=== PATIENT | female | born 1995 | race African-American/Black ===

== ENCOUNTER 2017-08-11 19:08 | Inpatient (IN) | payer MEDICARE, OTHER ==
[~2017-08-11] VITALS: Ht 154.9 cm; Wt 50.8 kg
[2017-08-11 19:10] VITALS: BP 105/69
[2017-08-11] MEDS ORDERED: HYDROmorphone 1mg/ml Carpuject IVP ONE (19:45)
[2017-08-11 20:02] LABS: HEMATOCRIT 29.5 % (37.0-47.0); HEMOGLOBIN 10.3 G/DL (12.0-16.0); MEAN CORPUSCULAR VOLUME 88 FL (80-99); PLATELET COUNT 304 K/UL (150-450); RED BLOOD COUNT 3.37 M/UL (4.20-5.40); RED CELL DISTRIBUTION WIDTH 13.4 % (11.6-14.8)
[2017-08-11 20:15] LABS: APPEARANCE,URINE CLEAR; BILIRUBIN, URINE NEGATIVE (NEGATIVE); COLOR,URINE PALE YELLOW; GLUCOSE, URINE (UA) NEGATIVE (NEGATIVE); KETONES,URINE 2+ (NEGATIVE); LEUKOCYTE ESTERASE ,URINE NEGATIVE (NEGATIVE); NITRITE,URINE NEGATIVE (NEGATIVE); PH,URINE 5 (4.5-8.0); PROTEIN,URINE NEGATIVE (NEGATIVE); UROBILINOGEN,URINE NORMAL MG/DL (0.0-1.0)
[2017-08-11 20:17] LABS: WHITE BLOOD COUNT 24.5 K/UL (4.8-10.8)
[2017-08-11 20:23] LABS: ANION GAP 10 mmol/L (5-15); BLOOD UREA NITROGEN 7 mg/dL (7-18); CALCIUM 9.5 MG/DL (8.5-10.1); CARBON DIOXIDE 24 MMOL/L (21-32); CHLORIDE 106 MMOL/L (98-107); CREATININE 0.7 MG/DL (0.55-1.30); POTASSIUM 3.8 MMOL/L (3.5-5.1); SODIUM 140 MMOL/L (136-145)
[2017-08-11 20:24] LABS: INR 1.1 (0.9-1.1)
[2017-08-11 20:35] LABS: ALANINE AMINOTRANSFERASE 10 U/L (12-78); ALBUMIN 4.9 G/DL (3.4-5.0); ALBUMIN/GLOBULIN RATIO 1.8 (1.0-2.7); ALKALINE PHOSPHATASE 63 U/L (46-116); ASPARTATE AMINO TRANSFERASE 19 U/L (15-37); BILIRUBIN,TOTAL 1.4 MG/DL (0.2-1.0)
[2017-08-11 20:36] LABS: BILIRUBIN,DIRECT 0.3 MG/DL (0.0-0.3)
[2017-08-11] MEDS ORDERED: IBUPROFEN600 MG ORAL (21:37)
--- NOTE | 2017-08-11 21:43 | Emergency Room Report ---
History of Present Illness General Chief Complaint: Pain Source: Patient (SWATI JUAREZ M.D.) Present Illness HPI 22-year-old female presents ED for evaluation. Patient describing generalized body pain x1 day. Has history of sickle cell disease. Status post splenectomy. Pain is throbbing, 9/10, nonradiating. Denies fevers chills. Denies chest pain or shortness of breath. No other aggravating relieving factors. Denies any other associated (SWATI JUAREZ M.D.) Allergies: Coded Allergies: CEFTRIAXONE (Verified Allergy, Unknown, 08/11/17) MORPHINE (Verified Allergy, Unknown, 08/11/17) PENICILLINS (Verified Allergy, Unknown, 08/11/17) SULFA (SULFONAMIDE ANTIBIOTICS) (Verified Allergy, Unknown, 08/11/17) Patient History Past Medical History: asthma Past Surgical History: none Pertinent Family History: none Social History: Denies: smoking, alcohol use, drug use Last Menstrual Period: now Now: No Immunizations: UTD Reviewed Nursing Documentation: PMH: Agreed, PSxH: Agreed (SWATI JUAREZ M.D.) Nursing Documentation-PMH Past Medical History: No History, Except For Hx Cardiac Problems: No - sickle cell disease Hx Asthma: Yes (SWATI JUAREZ M.D.) Review of Systems All Other Systems: negative except mentioned in HPI (SWATI JUAREZ M.D.) Physical Exam Vital Signs Date Time Temp Pulse Resp B/P (MAP) Pulse Ox O2 Delivery O2 Flow Rate FiO2 08/11/17 19:06 99.0 90 16 105/69 99 Room Air Sp02 EP Interpretation: reviewed, normal General Appearance: no apparent distress, alert, GCS 15, non-toxic Head: normocephalic, atraumatic Eyes: bilateral eye normal inspection, bilateral eye PERRL ENT: hearing grossly normal, normal pharynx, no angioedema, normal voice Neck: full range of motion, supple/symm/no masses Respiratory: chest non-tender, lungs clear, normal breath sounds, speaking full sentences Cardiovascular #1: regular rate, rhythm, no edema Cardiovascular #2: 2+ carotid (R), 2+ carotid (L), 2+ radial (R), 2+ radial (L) , 2+ dorsalis pedis (R), 2+ dorsalis pedis (L) Gastrointestinal: normal bowel sounds, non tender, soft, non-distended, no guarding, no rebound Rectal: deferred Genitourinary: normal inspection, no CVA tenderness Musculoskeletal: back normal, gait/station normal, normal range of motion, non- tender Neurologic: alert, oriented x3, responsive, motor strength/tone normal, sensory intact, speech normal Psychiatric: judgement/insight normal, memory normal, mood/affect normal, no suicidal/homicidal ideation Reflexes: 3+ bicep (R), 3+ bicep (L), 3+ tricep (R), 3+ tricep (L), 3+ knee (R) , 3+ knee (L) Skin: normal color, no rash, warm/dry, well hydrated Lymphatic: no adenopathy (SWATI JUAREZ M.D.) Medical Decision Making Diagnostic Impression: Primary Impression: Sickle cell crisis Labs Test 08/11/17 19:47 White Blood Count 24.5 K/UL (4.8-10.8) Red Blood Count 3.37 M/UL (4.20-5.40) Hemoglobin 10.3 G/DL (12.0-16.0) Hematocrit 29.5 % (37.0-47.0) Mean Corpuscular Volume 88 FL (80-99) Mean Corpuscular Hemoglobin 30.6 PG (27.0-31.0) Mean Corpuscular Hemoglobin Concent 35.0 G/DL (32.0-36.0) Red Cell Distribution Width 13.4 % (11.6-14.8) Platelet Count 304 K/UL (150-450) Mean Platelet Volume 6.2 FL (6.5-10.1) Neutrophils (%) (Auto) % (45.0-75.0) Lymphocytes (%) (Auto) % (20.0-45.0) Monocytes (%) (Auto) % (1.0-10.0) Eosinophils (%) (Auto) % (0.0-3.0) Basophils (%) (Auto) % (0.0-2.0) Differential Total Cells Counted 100 Neutrophils % (Manual) 75 % (45-75) Lymphocytes % (Manual) 14 % (20-45) Monocytes % (Manual) 8 % (1-10) Eosinophils % (Manual) 0 % (0-3) Basophils % (Manual) 0 % (0-2) Band Neutrophils 3 % (0-8) Nucleated Red Blood Cells 2 /100 WBC Platelet Estimate Adequate Platelet Morphology Normal Hypochromasia 1+ Anisocytosis 1+ Reticulocyte Count 2.6 % (0.0-2.0) Prothrombin Time 11.8 SEC (9.30-11.50) Prothromb Time International Ratio 1.1 (0.9-1.1) Activated Partial Thromboplast Time 31 SEC (23-33) Urine Color Pale yellow Urine Appearance Clear Urine pH 5 (4.5-8.0) Urine Specific [place] 1.015 (1.005-1.035) Urine Protein Negative (NEGATIVE) Urine Glucose (UA) Negative (NEGATIVE) Urine Ketones 2+ (NEGATIVE) Urine Occult Blood Negative (NEGATIVE) Urine Nitrite Negative (NEGATIVE) Urine Bilirubin Negative (NEGATIVE) Urine Urobilinogen Normal MG/DL (0.0-1.0) Urine Leukocyte Esterase Negative (NEGATIVE) Urine HCG, Qualitative Negative Sodium Level 140 MMOL/L (136-145) Potassium Level 3.8 MMOL/L (3.5-5.1) Chloride Level 106 MMOL/L (98-107) Carbon Dioxide Level 24 MMOL/L (21-32) Anion Gap 10 mmol/L (5-15) Blood Urea Nitrogen 7 mg/dL (7-18) Creatinine 0.7 MG/DL (0.55-1.30) Estimat Glomerular Filtration Rate > 60 mL/min (>60) Glucose Level 79 MG/DL (74-106) Calcium Level 9.5 MG/DL (8.5-10.1) Total Bilirubin 1.4 MG/DL (0.2-1.0) Direct Bilirubin 0.3 MG/DL (0.0-0.3) Aspartate Amino Transf (AST/SGOT) 19 U/L (15-37) Alanine Aminotransferase (ALT/SGPT) 10 U/L (12-78) Alkaline Phosphatase 63 U/L (46-116) Lactate Dehydrogenase 258 U/L (81-234) Total Protein 7.6 G/DL (6.4-8.2) Albumin 4.9 G/DL (3.4-5.0) Globulin 2.7 g/dL Albumin/Globulin Ratio 1.8 (1.0-2.7) (SWATI JUAREZ M.D.) ER Course Endorsed to Dr Mixon for admission at 11pm Requested tele - patient upgraded ECG was done, NSR, no arrythmia Patient stable in ED (CEASAR KINCAID M.D.) EKG Diagnostic Results Rate: normal Rhythm: NSR ST Segments: no acute changes ASA given to the pt in ED: No (CEASAR KINCAID M.D.) Rhythm Strip Diag. Results EP Interpretation: yes Rate: 92 Rhythm: NSR, no PVC's, no ectopy (CEASAR KINCAID M.D.) Last Vital Signs Date Time Temp Pulse Resp B/P (MAP) Pulse Ox O2 Delivery O2 Flow Rate FiO2 08/11/17 20:26 99.0 08/11/17 19:10 90 16 105/69 99 Room Air Status: improved (SWATI JUAREZ M.D.) Status: improved (CEASAR KINCAID M.D.) Disposition: ADMITTED INPATIENT Condition: Serious Referrals: NOT CHOSEN AMALIA/,REFERRING (PCP) SWATI JUAREZ M.D. Aug 11, 2017 21:43 CEASAR KINCAID M.D. Aug 11, 2017 23:51
[2017-08-11 21:46] VITALS: BP 112/57
[2017-08-11] MEDS ORDERED: Ketorolac 30mg Inj IV ONE (22:15)
[2017-08-11 23:04] VITALS: BP 108/90
[2017-08-12 01:00] VITALS: BP 123/75
[2017-08-12] MEDS ORDERED: HYDROmorphone 1mg/ml Carpuject IVP PRN (03:15)
[2017-08-12] MEDS ORDERED: HYDROmorphone 1mg/ml Carpuject IVP ONE (03:30)
[2017-08-12 08:00] VITALS: BP 100/59
[2017-08-12 09:24] LABS: BASOPHILS % (AUTO) 1.5 % (0.0-2.0); EOSINOPHILS % (AUTO) 2.3 % (0.0-3.0); HEMATOCRIT 26.7 % (37.0-47.0); HEMOGLOBIN 9.3 G/DL (12.0-16.0); LYMPHOCYTES % (AUTO) 27.1 % (20.0-45.0); MEAN CORPUSCULAR VOLUME 87 FL (80-99); MONOCYTES % (AUTO) 11.3 % (1.0-10.0); NEUTROPHILS % (AUTO) 57.9 % (45.0-75.0); PLATELET COUNT 285 K/UL (150-450); RED BLOOD COUNT 3.05 M/UL (4.20-5.40); RED CELL DISTRIBUTION WIDTH 13.5 % (11.6-14.8); WHITE BLOOD COUNT 13.4 K/UL (4.8-10.8)
[2017-08-12] MEDS: HYDROmorphone 1mg/ml Carpuject IVP PRN ×4 (09:24→22:50)
[2017-08-12 10:09] LABS: ALANINE AMINOTRANSFERASE 6 U/L (12-78); ALBUMIN 4.1 G/DL (3.4-5.0); ALBUMIN/GLOBULIN RATIO 1.6 (1.0-2.7); ALKALINE PHOSPHATASE 53 U/L (46-116); ANION GAP 8 mmol/L (5-15); ASPARTATE AMINO TRANSFERASE 18 U/L (15-37); BILIRUBIN,TOTAL 1.2 MG/DL (0.2-1.0); BLOOD UREA NITROGEN 7 mg/dL (7-18); CALCIUM 9.1 MG/DL (8.5-10.1); CARBON DIOXIDE 24 MMOL/L (21-32); CHLORIDE 109 MMOL/L (98-107); CREATININE 0.6 MG/DL (0.55-1.30); POTASSIUM 3.5 MMOL/L (3.5-5.1); SODIUM 141 MMOL/L (136-145)
[2017-08-12 10:12] LABS: BILIRUBIN,DIRECT 0.2 MG/DL (0.0-0.3)
[2017-08-12] MEDS: DiphenhydrAMINE 50mg/ml Inj IVP PRN ×2 (15:34→21:13)
[2017-08-12 16:00] VITALS: BP 98/63
--- NOTE | 2017-08-12 16:18 | History and Physical Report ---
DATE OF ADMISSION: 08/11/2017 CHIEF COMPLAINT: Sickle cell pain exacerbation. HISTORY OF PRESENT ILLNESS: The patient is a 22-year-old female. She has a history of sickle cell anemia, presented with complaints of typical sickle cell pain. The pain had been persistent now for the last week or two. She had some mild vomiting, which according to her is unusual for her pain exacerbation. According to the patient, she usually has attacks with her periods, although she does not normally require admission. Her last admission requiring transfusion was in October of last year. She denies any fevers or chills. She has had no chest pain or shortness of breath. She had one episode of vomiting. She denies any ill contacts. She has had no diarrhea. In the ER, her pain could not be controlled. She was therefore admitted. PAST MEDICAL HISTORY: As above. History of asthma. PAST SURGICAL HISTORY: Includes splenectomy and oophorectomy. CURRENT MEDICATIONS: Reconciled and reviewed. ALLERGIES: Include Rocephin, morphine, penicillin, and sulfa. FAMILY HISTORY: Significant for sickle cell. SOCIAL HISTORY: Negative for tobacco, ethanol, or drugs. REVIEW OF SYSTEMS: GENERAL: No fever or chills. HEENT: No headaches or visual changes. CARDIOPULMONARY: No chest pain or shortness of breath. GASTROINTESTINAL: One episode of nausea and vomiting. GENITOURINARY: No urgency or frequency. MUSCULOSKELETAL: No joint pain or swelling. NEUROLOGIC: No evidence of seizures. PHYSICAL EXAMINATION: VITAL SIGNS: Temperature 97.5, pulse 56, respirations 18, and blood pressure 100/59. GENERAL: The patient is well developed, no apparent distress. HEART: Regular rate and rhythm. LUNGS: Clear. ABDOMEN: Soft, nontender, and nondistended. EXTREMITIES: Without clubbing, cyanosis, or edema. LABORATORY AND DIAGNOSTIC DATA: White count was 24,000, hemoglobin 10, hematocrit 29, and platelet count was 304,000. Retic was 2.6. Sodium was 140, potassium 3.8. Total bilirubin 1.4. Coags are normal. UA was clear. X-ray results are currently pending. EKG showed sinus rhythm. ASSESSMENT: This is a pleasant female with complaints of sickle cell pain exacerbation. 1. Sickle cell pain exacerbation. 2. Asthma. 3. Leukocytosis, suspect stress reaction. PLAN: IV fluids, IV pain medications, antiemetics. Eloy Bey M.D. DR: MARIAM JOB#: [id number] CC:
[2017-08-12 20:00] VITALS: BP 113/64
[2017-08-13] VITALS: BP 113/66
[2017-08-13 04:00] VITALS: BP 103/64
[2017-08-13] MEDS: HYDROmorphone 1mg/ml Carpuject IVP PRN ×5 (05:10→23:07)
[2017-08-13 08:00] VITALS: BP 100/53
[2017-08-13] MEDS: DiphenhydrAMINE 50mg/ml Inj IVP PRN ×2 (10:44→20:20)
[2017-08-13 12:00] VITALS: BP 141/81
--- NOTE | 2017-08-13 12:36 | General Progress Note ---
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, unspecified SNOMED: 352496268 Status: stable, progressing Assessment/Plan cont ivf cont pain rx monitor cbc Subjective ROS Limited/Unobtainable: No Constitutional: Reports: malaise, weakness HEENT: Reports: no symptoms Cardiovascular: Reports: no symptoms Respiratory: Reports: no symptoms Gastrointestinal/Abdominal: Reports: abdominal pain Genitourinary: Reports: no symptoms Neurologic/Psychiatric: Reports: no symptoms Endocrine: Reports: no symptoms Hematologic/Lymphatic: Reports: anemia Allergies: Coded Allergies: CEFTRIAXONE (Verified Allergy, Unknown, 08/11/17) MORPHINE (Verified Allergy, Unknown, 08/11/17) PENICILLINS (Verified Allergy, Unknown, 08/11/17) SULFA (SULFONAMIDE ANTIBIOTICS) (Verified Allergy, Unknown, 08/11/17) All Systems: reviewed and negative except above Subjective less abd pain and more back pain. pain controlled on current rx, remains on ivf. Objective Last 24 Hour Vital Signs Date Time Temp Pulse Resp B/P (MAP) Pulse Ox O2 Delivery O2 Flow Rate FiO2 08/13/17 08:00 97.8 72 20 100/53 97 Room Air 08/13/17 04:13 71 08/13/17 04:00 98.0 78 20 103/64 100 Room Air 08/13/17 00:00 98.0 67 18 113/66 100 Room Air 08/12/17 23:50 87 08/12/17 20:03 66 08/12/17 20:00 97.9 58 18 113/64 100 Room Air 08/12/17 16:00 98.3 65 18 98/63 96 Room Air Intake and Output 08/12/17 08/13/17 19:00 07:00 Intake Total 240 ml 2058 ml Balance 240 ml 2058 ml Intake Oral 240 ml IV Total 2058 ml # Voids 3 1 Height (Feet): 5 Height (Inches): 1.00 Weight (Pounds): 112 General Appearance: WD/WN, alert Neck: supple Cardiovascular: normal rate, regular rhythm Respiratory/Chest: chest wall non-tender, lungs clear, normal breath sounds Abdomen: normal bowel sounds, non tender, soft, no organomegaly, no mass Edema: no edema noted Arm (L), no edema noted Arm (R), no edema noted Leg (L), no edema noted Leg (R), no edema noted Pedal (L), no edema noted Pedal (R), no edema noted Generalized SALEEM KRUEGER Aug 13, 2017 12:36
[2017-08-13 16:00] VITALS: BP 126/73
[2017-08-14 00:55] VITALS: BP 99/64
[2017-08-14] MEDS: DiphenhydrAMINE 50mg/ml Inj IVP PRN ×2 (02:41→22:02)
[2017-08-14 04:00] VITALS: BP 100/59
[2017-08-14] MEDS: HYDROmorphone 1mg/ml Carpuject IVP PRN ×3 (07:02→21:01)
[2017-08-14 07:44] LABS: BASOPHILS % (AUTO) 1.3 % (0.0-2.0); EOSINOPHILS % (AUTO) 1.9 % (0.0-3.0); HEMOGLOBIN 9.5 G/DL (12.0-16.0); LYMPHOCYTES % (AUTO) 20.5 % (20.0-45.0); MEAN CORPUSCULAR VOLUME 87 FL (80-99); MONOCYTES % (AUTO) 9.5 % (1.0-10.0); NEUTROPHILS % (AUTO) 66.8 % (45.0-75.0); PLATELET COUNT 290 K/UL (150-450); RED BLOOD COUNT 3.09 M/UL (4.20-5.40); RED CELL DISTRIBUTION WIDTH 13.7 % (11.6-14.8); WHITE BLOOD COUNT 13.2 K/UL (4.8-10.8)
[2017-08-14 08:00] VITALS: BP 105/64
[2017-08-14 08:20] LABS: ALANINE AMINOTRANSFERASE 8 U/L (12-78); ALBUMIN 4.1 G/DL (3.4-5.0); ALBUMIN/GLOBULIN RATIO 1.5 (1.0-2.7); ALKALINE PHOSPHATASE 58 U/L (46-116); ANION GAP 13 mmol/L (5-15); ASPARTATE AMINO TRANSFERASE 16 U/L (15-37); BLOOD UREA NITROGEN 3 mg/dL (7-18); CALCIUM 9.1 MG/DL (8.5-10.1); CARBON DIOXIDE 23 MMOL/L (21-32); CHLORIDE 107 MMOL/L (98-107); CREATININE 0.5 MG/DL (0.55-1.30); POTASSIUM 3.6 MMOL/L (3.5-5.1); SODIUM 142 MMOL/L (136-145)
[2017-08-14 08:49] LABS: BILIRUBIN,DIRECT 1.4 MG/DL (0.0-0.3); BILIRUBIN,TOTAL 1.4 MG/DL (0.2-1.0)
--- NOTE | 2017-08-14 12:21 | General Progress Note ---
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, unspecified SNOMED: 440060111 Status: stable, progressing Assessment/Plan cont ivf cont pain rx- wean iv and start orals monitor cbc Subjective ROS Limited/Unobtainable: No Constitutional: Reports: malaise, weakness HEENT: Reports: no symptoms Cardiovascular: Reports: no symptoms Respiratory: Reports: no symptoms Gastrointestinal/Abdominal: Reports: abdominal pain Genitourinary: Reports: no symptoms Neurologic/Psychiatric: Reports: no symptoms Endocrine: Reports: no symptoms Hematologic/Lymphatic: Reports: anemia Allergies: Coded Allergies: CEFTRIAXONE (Verified Allergy, Unknown, 08/11/17) MORPHINE (Verified Allergy, Unknown, 08/11/17) PENICILLINS (Verified Allergy, Unknown, 08/11/17) SULFA (SULFONAMIDE ANTIBIOTICS) (Verified Allergy, Unknown, 08/11/17) All Systems: reviewed and negative except above Subjective less abd pain and more back pain. pain controlled on current rx, remains on ivf. does feel ready to go Objective Last 24 Hour Vital Signs Date Time Temp Pulse Resp B/P (MAP) Pulse Ox O2 Delivery O2 Flow Rate FiO2 08/14/17 08:00 98.1 72 17 105/64 94 Nasal Cannula 08/14/17 04:00 97.9 59 18 100/59 98 08/14/17 00:56 Room Air 08/14/17 00:55 98.0 68 19 99/64 98 08/13/17 16:00 97.6 90 21 126/73 98 Room Air Intake and Output 08/13/17 08/14/17 19:00 07:00 Intake Total 300 ml 1110 ml Balance 300 ml 1110 ml Intake Oral 300 ml 360 ml IV Total 750 ml Laboratory Tests 08/14/17 06:30: White Blood Count 13.2H, Red Blood Count 3.09L, Hemoglobin 9.5L, Hematocrit 27.0L, Mean Corpuscular Volume 87, Mean Corpuscular Hemoglobin 30.6, Mean Corpuscular Hemoglobin Concent 35.0, Red Cell Distribution Width 13.7, Platelet Count 290, Mean Platelet Volume 6.6, Neutrophils (%) (Auto) 66.8, Lymphocytes (% ) (Auto) 20.5, Monocytes (%) (Auto) 9.5, Eosinophils (%) (Auto) 1.9, Basophils ( %) (Auto) 1.3, Sodium Level 142, Potassium Level 3.6, Chloride Level 107, Carbon Dioxide Level 23, Anion Gap 13, Blood Urea Nitrogen 3L, Creatinine 0.5L, Estimat Glomerular Filtration Rate > 60, Glucose Level 77, Calcium Level 9.1, Total Bilirubin 1.4H, Direct Bilirubin 1.4H, Aspartate Amino Transf (AST/SGOT) 16, Alanine Aminotransferase (ALT/SGPT) 8L, Alkaline Phosphatase 58, Total Protein 6.9, Albumin 4.1, Globulin 2.8, Albumin/Globulin Ratio 1.5 Height (Feet): 5 Height (Inches): 1.00 Weight (Pounds): 112 General Appearance: WD/WN, alert Neck: supple Cardiovascular: regular rhythm Respiratory/Chest: lungs clear Abdomen: normal bowel sounds, non tender, soft Edema: no edema noted Arm (L), no edema noted Arm (R), no edema noted Leg (L), no edema noted Leg (R), no edema noted Pedal (L), no edema noted Pedal (R), no edema noted Generalized SALEEM KRUEGER Aug 14, 2017 12:21
[2017-08-14] MEDS ORDERED: HYDROmorphone 1mg/ml Carpuject IVP PRN (12:30)
[2017-08-14 16:35] VITALS: BP 131/82
[2017-08-14] MEDS: HYDROcodone/Acetamin 10/325 tab ORAL PRN (17:23)
[2017-08-14 20:00] VITALS: BP 116/73
[2017-08-15 00:52] VITALS: BP 120/75
[2017-08-15 04:00] VITALS: BP 97/61
[2017-08-15 08:19] VITALS: BP 103/60
[2017-08-15] MEDS ORDERED: NORCO 10-325 T1 EACH ORAL (08:28)
[2017-08-15] MEDS: HYDROcodone/Acetamin 10/325 tab ORAL PRN (08:44)
[2017-08-15] MEDS: HYDROmorphone 1mg/ml Carpuject IVP PRN (10:16)
[2017-08-15 12:00] VITALS: BP 121/77
[2017-08-15] MEDS: DiphenhydrAMINE 50mg/ml Inj IVP PRN (12:02)
[2017-08-15 16:00] VITALS: BP 105/61
--- NOTE | 2017-08-16 14:16 | Discharge Summary ---
Discharge Summary Hospital Course Date of Admission Aug 11, 2017 at 22:18 Date of Discharge Aug 15, 2017 at 17:36 Admitting Diagnosis sickle cell crysis HPI Caterina Austin is a 22 year old female who was admitted on Aug 11, 2017 at 22:18 for PAIN Hospital Course [id number] Discharge Discharge Disposition Patient was discharged to Home (01) Discharge Diagnoses: Angelique Woodruff NP Aug 16, 2017 14:16
--- NOTE | 2017-08-17 12:55 | Discharge Summary ---
DATE OF ADMISSION: 08/11/2017 DATE OF DISCHARGE: 08/15/2017 ADMISSION DIAGNOSIS: Sickle cell pain crisis. DISCHARGE DIAGNOSIS: Sickle cell pain crisis. HOSPITAL COURSE: The patient is a pleasant female who was admitted with sickle cell pain crisis. She received IV pain medications and hydration. Reticulocyte count was appropriately elevated. On discharge, the patient was doing well. She will be discharged home on oral pain regimen. She is instructed to follow up with her PMD in one week for followup. She has been instructed to return for any fevers chills, chest pain, or shortness of breath. Eloy Bey M.D. DR: David JOB#: [id number] CC:
--- NOTE | 2017-08-17 19:45 | Discharge Summary 2 SIG ---
DATE OF ADMISSION: 08/11/2017 DATE OF DISCHARGE: 08/15/2017 BRIEF HOSPITAL COURSE: The patient is a 22-year-old female with history of sickle cell anemia presented with complaints of a typical sickle cell pain. Pain had been persistent for the last week or 2 and had some mild vomiting. She usually gets attacks with her periods although she does not normally require admission. Her last admission required blood transfusion was in October of last year. She had no chest pain. No shortness of breath and had one episode of vomiting. She denied any ill contacts. No diarrhea. In the ER, her pain could not be controlled. Evaluation showed WBC of 24.5, hemoglobin was 10.3, hematocrit was 29. Reticulocyte count was 2.6. She was admitted for sickle cell crisis and was given IV hydration, pain medications, and antiemetics. Hemoglobin had been stable. Leukocytosis downtrended. She was eventually started on orals. She had good pain control and was tolerating diet. She was eventually discharged home. FINAL DIAGNOSIS: Sickle cell crisis. DISCHARGE MEDICATIONS: [place] 10/325 mg p.r.n. DISCHARGE INSTRUCTIONS: Followup with PMD in a week. Eloy Bey M.D. I have been assigned to dictate discharge summary on this account and I was not involved in the patient's management. Angelique Woodruff N.P. DR: URIAH JOB#: [id number] CC: [place]
== END 2017-08-15 17:36 | disposition home or self-care (01) | DRG 812 ==
LOC: EDBD 19:08 → EMR 19:52 → UNDOADMIN 22:18 → 3E 22:18 → 2E 22:18 → EDBEDREQ 22:34 → 3E 08-13 17:00
DX: D57.00 Hb-SS disease with crisis, unspecified (principal); D72.829 Elevated white blood cell count, unspecified; J45.909 Unspecified asthma, uncomplicated; Z88.0 Allergy status to penicillin; Z88.2 Allergy status to sulfonamides
CPT/HCPCS: 36415; 80053; 81003; 81025; 82248; 83615; 84443; 85007; 85025; 85044; 85610; 85730; 86710; 86850; 86870; 86900; 86901; 86904; 99285; J2405

== ENCOUNTER 2017-09-02 10:09 | Emergency (ER) | payer MEDICARE, OTHER ==
[~2017-09-02] VITALS: Ht 154.9 cm; Wt 50.8 kg
[2017-09-02 10:09] VITALS: BP 118/63
[~2017-09-02 10:09] MED LIST: IBUPROFEN600 MG ORAL; NORCO 10-325 T1 EACH ORAL
--- NOTE | 2017-09-02 10:16 | Emergency Room Report ---
History of Present Illness General Chief Complaint: Abdominal Pain Source: Patient Present Illness HPI Patient is a 22-year-old female who presented after increased lower bowel pain and vaginal bleeding. Patient prior history of sickle cell disease and prior splenectomy. Patient states that she had having increased lower bowel pain cramping. She reported having previous menses which appear to be normal however she was having increased vaginal bleeding today. Patient not currently taking any control pills. She's not sure if she is .The patient reports having sickle cell SC disease as well as a baseline hemoglobin approximately 11. 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 Allergies: Coded Allergies: CEFTRIAXONE (Verified Allergy, Unknown, 08/11/17) MORPHINE (Verified Allergy, Unknown, 08/11/17) PENICILLINS (Verified Allergy, Unknown, 08/11/17) SULFA (SULFONAMIDE ANTIBIOTICS) (Verified Allergy, Unknown, 08/11/17) Patient History Past Medical History: see triage record Last Menstrual Period: 08/30/17 Now: No : 0 Reviewed Nursing Documentation: PMH: Agreed, PSxH: Agreed Nursing Documentation-PMH Past Medical History: No Stated History Hx Cardiac Problems: No Hx Asthma: Yes Hx Cancer: No Hx Gastrointestinal Problems: No Hx Neurological Problems: No Review of Systems All Other Systems: negative except mentioned in HPI Physical Exam Vital Signs Date Time Temp Pulse Resp B/P (MAP) Pulse Ox O2 Delivery O2 Flow Rate FiO2 09/02/17 10:05 99.0 64 18 118/63 99 Room Air 99.0 Sp02 EP Interpretation: reviewed, normal General Appearance: normal inspection, well appearing, no apparent distress, alert, GCS 15, non-toxic Head: atraumatic ENT: normal ENT inspection, hearing grossly normal, normal voice Neck: normal inspection, full range of motion, supple, no bony tend Respiratory: normal inspection, lungs clear, normal breath sounds, no respiratory distress, no retraction, no wheezing Cardiovascular #1: regular rate, rhythm, no edema Gastrointestinal: normal inspection, normal bowel sounds, non tender, soft, no guarding, no hernia, tenderness - suprapubic tendernesss Genitourinary: no CVA tenderness Musculoskeletal: normal inspection, back normal, normal range of motion Neurologic: normal inspection, alert, responsive, speech normal Psychiatric: normal inspection, judgement/insight normal, mood/affect normal Skin: normal inspection, normal color, no rash Medical Decision Making Diagnostic Impression: Primary Impression: Abdominal pain Additional Impressions: Sickle cell anemia Ovarian cyst ER Course Patient presented for abdominal pain. Differential diagnoses included ischemic bowel, appendicitis, perforated viscus, abdominal aortic aneurysm, inferior myocardial infarction, viral gastroenteritis Because of complexity of patient's case laboratory testing and imaging studies were ordered.Laboratory testing showed evidence of adequate hemoglobin as well as adequate reticulocyte count consistent patient's recent hospitalization values. The patient started on IV Levaquin. Pelvic ultrasound was obtained and showed adequate ovarian flow as well as small amount of fluid in the cul-de sac. The patient was given IV Dilaudid for pain with improvement.. The patient is advised that she would need to followup with her primary care physician for reevaluation of her blood counts. Patient given a prescription for ciprofloxacin. Patient was given ibuprofen after requesting a prescription for pain medications. The patient does not appear to be septic. Labs Test 09/02/17 10:15 09/02/17 10:50 White Blood Count 21.4 K/UL (4.8-10.8) Red Blood Count 3.48 M/UL (4.20-5.40) Hemoglobin 11.0 G/DL (12.0-16.0) Hematocrit 30.7 % (37.0-47.0) Mean Corpuscular Volume 88 FL (80-99) Mean Corpuscular Hemoglobin 31.6 PG (27.0-31.0) Mean Corpuscular Hemoglobin Concent 35.9 G/DL (32.0-36.0) Red Cell Distribution Width 13.1 % (11.6-14.8) Platelet Count 322 K/UL (150-450) Mean Platelet Volume 7.0 FL (6.5-10.1) Neutrophils (%) (Auto) % (45.0-75.0) Lymphocytes (%) (Auto) % (20.0-45.0) Monocytes (%) (Auto) % (1.0-10.0) Eosinophils (%) (Auto) % (0.0-3.0) Basophils (%) (Auto) % (0.0-2.0) Differential Total Cells Counted 100 Neutrophils % (Manual) 67 % (45-75) Lymphocytes % (Manual) 25 % (20-45) Monocytes % (Manual) 5 % (1-10) Eosinophils % (Manual) 3 % (0-3) Basophils % (Manual) 0 % (0-2) Band Neutrophils 0 % (0-8) Nucleated Red Blood Cells 2 /100 WBC Platelet Estimate Adequate Platelet Morphology Normal Hypochromasia 1+ Reticulocyte Count 2.9 % (0.0-2.0) Sodium Level 140 MMOL/L (136-145) Potassium Level 3.7 MMOL/L (3.5-5.1) Chloride Level 108 MMOL/L (98-107) Carbon Dioxide Level 28 MMOL/L (21-32) Anion Gap 4 mmol/L (5-15) Blood Urea Nitrogen 4 mg/dL (7-18) Creatinine 0.6 MG/DL (0.55-1.30) Estimat Glomerular Filtration Rate > 60 mL/min (>60) Glucose Level 84 MG/DL (74-106) Calcium Level 9.1 MG/DL (8.5-10.1) Total Bilirubin 0.9 MG/DL (0.2-1.0) Aspartate Amino Transf (AST/SGOT) 19 U/L (15-37) Alanine Aminotransferase (ALT/SGPT) 13 U/L (12-78) Alkaline Phosphatase 68 U/L (46-116) Total Protein 7.2 G/DL (6.4-8.2) Albumin 4.1 G/DL (3.4-5.0) Globulin 3.1 g/dL Albumin/Globulin Ratio 1.3 (1.0-2.7) Lipase 185 U/L (73-393) Human Chorionic Gonadotropin, Quant < 1 mIU/mL (1-6) Urine Color Red Urine Appearance Cloudy Urine pH 5 (4.5-8.0) Urine Specific [place] 1.015 (1.005-1.035) Urine Protein 3+ (NEGATIVE) Urine Glucose (UA) Negative (NEGATIVE) Urine Ketones Negative (NEGATIVE) Urine Occult Blood 5+ (NEGATIVE) Urine Nitrite Negative (NEGATIVE) Urine Bilirubin Negative (NEGATIVE) Urine Urobilinogen Normal MG/DL (0.0-1.0) Urine Leukocyte Esterase 2+ (NEGATIVE) Urine RBC Tntc /HPF (0 - 2) Urine WBC 5-10 /HPF (0 - 2) Urine Squamous Epithelial Cells Few /LPF (NONE/OCC) Urine Bacteria Few /HPF (NONE) Last Vital Signs Date Time Temp Pulse Resp B/P (MAP) Pulse Ox O2 Delivery O2 Flow Rate FiO2 09/02/17 10:05 99.0 64 18 118/63 99 Room Air 99.0 Status: improved Disposition: HOME, SELF-CARE Condition: Stable Scripts Ibuprofen* (MOTRIN*) 600 Mg Tablet 600 MG ORAL Q6H Y for For Pain, #30 TAB Prov: Idris Larson 09/02/17 Ciprofloxacin Hcl* (CIPROFLOXACIN HCL*) 500 Mg Tablet 500 MG ORAL EVERY 12 HOURS, #14 TAB 0 Refills Prov: Idris Larson 09/02/17 Idris Larson Sep 02, 2017 10:16
[2017-09-02 10:52] LABS: HEMATOCRIT 30.7 % (37.0-47.0); MEAN CORPUSCULAR VOLUME 88 FL (80-99); PLATELET COUNT 322 K/UL (150-450); RED BLOOD COUNT 3.48 M/UL (4.20-5.40); RED CELL DISTRIBUTION WIDTH 13.1 % (11.6-14.8); WHITE BLOOD COUNT 21.4 K/UL (4.8-10.8)
[2017-09-02 10:55] LABS: ANION GAP 4 mmol/L (5-15); BLOOD UREA NITROGEN 4 mg/dL (7-18); CALCIUM 9.1 MG/DL (8.5-10.1); CARBON DIOXIDE 28 MMOL/L (21-32); CHLORIDE 108 MMOL/L (98-107); CREATININE 0.6 MG/DL (0.55-1.30); POTASSIUM 3.7 MMOL/L (3.5-5.1); SODIUM 140 MMOL/L (136-145)
[2017-09-02 10:59] LABS: ALANINE AMINOTRANSFERASE 13 U/L (12-78); ALBUMIN 4.1 G/DL (3.4-5.0); ALBUMIN/GLOBULIN RATIO 1.3 (1.0-2.7); ALKALINE PHOSPHATASE 68 U/L (46-116); ASPARTATE AMINO TRANSFERASE 19 U/L (15-37); BILIRUBIN,TOTAL 0.9 MG/DL (0.2-1.0)
[2017-09-02] MEDS ORDERED: HYDROmorphone 1mg/ml Carpuject IVP ONE (11:15)
[2017-09-02 11:22] LABS: APPEARANCE,URINE CLOUDY; BILIRUBIN, URINE NEGATIVE (NEGATIVE); GLUCOSE, URINE (UA) NEGATIVE (NEGATIVE); KETONES,URINE NEGATIVE (NEGATIVE); LEUKOCYTE ESTERASE ,URINE 2+ (NEGATIVE); NITRITE,URINE NEGATIVE (NEGATIVE); PH,URINE 5 (4.5-8.0); PROTEIN,URINE 3+ (NEGATIVE); UROBILINOGEN,URINE NORMAL MG/DL (0.0-1.0)
[2017-09-02 11:24] LABS: COLOR,URINE RED
[2017-09-02 12:21] VITALS: BP 109/61
[2017-09-02] MEDS ORDERED: CIPROFLOXACIN500 M2 ORAL (13:48)
[2017-09-02] MEDS ORDERED: IBUPROFEN600 MG ORAL (13:57)
[2017-09-02 14:09] VITALS: BP 116/79
--- NOTE | 2017-09-03 14:12 | Diagnostic Imaging Report ---
Indication: Pelvic pain, negative serum test Technique: Transabdominal and transvaginal images Comparison: none Findings: Uterus measures 8.3 cm length by 3.8 cm AP. Endometrium measures 10 mm thick. No myometrial abnormality. The left ovary is surgically absent. The right ovary measures 4 cm in length. No adnexal mass demonstrated. Possible small collapsed hemorrhagic follicle is seen in the right ovary. There is trace free cul-de-sac fluid. Impression: Surgically absent left ovary Trace free cul-de-sac fluid, presumably physiologic Negative for adnexal mass
== END 2017-09-02 14:09 | disposition home or self-care (01) ==
LOC: EDBD 10:09 → EMR 11:00
DX: N83.201 Unspecified ovarian cyst, right side (principal); R10.9 Unspecified abdominal pain; D57.1 Sickle-cell disease without crisis; Z88.0 Allergy status to penicillin; Z88.2 Allergy status to sulfonamides; Z88.6 Allergy status to analgesic agent; Z88.8 Allergy status to other drugs, medicaments and biological substances; J45.909 Unspecified asthma, uncomplicated; Z90.721 Acquired absence of ovaries, unilateral
CPT/HCPCS: 36415; 76856; 80053; 81003; 83690; 84702; 85007; 85025; 85044; 86850; 86870; 86900; 86901; 86904; 96361; 96365; 96375; 99284; J1170; J1956; J2405

== ENCOUNTER 2017-11-11 14:49 | Emergency (ER) | payer MEDICARE, OTHER ==
[~2017-11-11] VITALS: Ht 170.2 cm; Wt 63.5 kg
[~2017-11-11 14:49] MED LIST changes: +CIPROFLOXACIN500 M2 ORAL
[2017-11-11 14:53] VITALS: BP 133/75
[2017-11-11] MEDS ORDERED: HYDROmorphone 1mg/ml Carpuject IVP ONE (15:15)
--- NOTE | 2017-11-11 15:22 | Emergency Room Report ---
History of Present Illness General Chief Complaint: Pain Source: Patient, EMS Present Illness HPI The patient presents with sickle crisis. 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 Today she was walking and started to have pain throughout her body. In addition to that she's been vomiting and feels nauseated. There is no abdominal pain. She denies any fever or cough. There is no chest pain at this time. The pain is more in her back and extremities and his her usual sickle pain. She has [place] at home but was unable to keep any of her medications down. The paramedics found her in the bathroom. They transported her here. She rates the pain 10/10 and constant aching in extremities and back nonradiating. Last menses was in the beginning the month and she does not believe she is . The patient's last crisis was 2 months ago. She is allergic to morphine and that it causes itching. (When last here, apparently there was a problem when the patient was discharged regarding how she might get home. This apparently escalated where family members came in and were threatening staff, then finally taking the patient home.) Allergies: Coded Allergies: CEFTRIAXONE (Verified Allergy, Unknown, 08/11/17) MORPHINE (Verified Allergy, Unknown, 08/11/17) PENICILLINS (Verified Allergy, Unknown, 08/11/17) SULFA (SULFONAMIDE ANTIBIOTICS) (Verified Allergy, Unknown, 08/11/17) Uncoded Allergies: PENICILLIN (Allergy, Unknown, 11/11/17) SULFA (Allergy, Unknown, 11/11/17) Patient History Past Medical History: see triage record Past Surgical History: other - Splenectomy Social History: Denies: smoking, alcohol use Social History Narrative at home Reviewed Nursing Documentation: PMH: Agreed; PSxH: Agreed Nursing Documentation-PMH Past Medical History: No History, Except For Hx Cardiac Problems: Yes - sickel cell Hx Asthma: Yes Hx Cancer: No Hx Gastrointestinal Problems: No Hx Neurological Problems: No Review of Systems All Other Systems: negative except mentioned in HPI Physical Exam Vital Signs Date Time Temp Pulse Resp B/P (MAP) Pulse Ox O2 Delivery O2 Flow Rate FiO2 11/11/17 14:43 98.8 101 18 133/75 100 Room Air 98.8 Sp02 EP Interpretation: reviewed, normal General Appearance: GCS 15, moderate distress, thin Head: normocephalic Eyes: bilateral eye PERRL, bilateral eye conjunctivae pale, bilateral eye scleral icterus ENT: moist mucus membranes Neck: supple Respiratory: lungs clear, normal breath sounds, other - Hyperventilating Cardiovascular #1: regular rate, rhythm Cardiovascular #2: 2+ radial (R) Gastrointestinal: normal inspection, non tender, no mass, non-distended, decreased bowel sounds Genitourinary: no CVA tenderness Musculoskeletal: normal range of motion, tender - lumbar area, not bony, fairly diffuse Neurologic: alert, oriented x3, grossly normal - With generalized weakness Psychiatric: anxious Skin: warm/dry, pallor Medical Decision Making Diagnostic Impression: Primary Impression: Sickle cell crisis Additional Impressions: UTI (urinary tract infection) Qualified Codes: N30.00 - Acute cystitis without hematuria Vomiting Qualified Codes: R11.2 - Nausea with vomiting, unspecified ER Course Patient presents with c/o sickle crisis. Differential includes sickle cell crisis, occult infection, bone marrow failure, gastroenteritis, urinary tract infection amongst others. The patient will be evaluated with labs chest x-ray. She'll be treated with moderate IV hydration and analgesia. For the nausea and vomiting she'll be given Pepcid and Zofran. EKG without injury. CXR no infiltrates. WBC elevated. H/H low normal. Retic up. CMP with elevated bili, LDH. Elevated lactic acid. Repeat lactate normal. Patient treated with IV Levaquin as elevated WBC, lactate and pyuria. No CVA tenderness, though lower back pain. In the past WBCs have been elevated. Patient improved and requests to go home. Requests tylenol. Multiple discussions regarding d/c medications and her ability to follow up with her doctors at the [facility] that only sees patients Tuesdays and . When I mentioned her going to their Urgent Care Clinic she stated it was too far from where she lives and that we are closer. Patient demanding taxi home. Per decision of gas charger, ambulance summoned to take home. Patient requesting more pain medicine - Percocet given. Patient stable for outpatient observation and treatment. Laboratory Tests Test 11/11/17 15:10 11/11/17 16:20 White Blood Count 23.1 K/UL (4.8-10.8) *H Red Blood Count 4.11 M/UL (4.20-5.40) L Hemoglobin 13.1 G/DL (12.0-16.0) Hematocrit 35.8 % (37.0-47.0) L Mean Corpuscular Volume 87 FL (80-99) Mean Corpuscular Hemoglobin 31.8 PG (27.0-31.0) H Mean Corpuscular Hemoglobin Concent 36.5 G/DL (32.0-36.0) H Red Cell Distribution Width 12.8 % (11.6-14.8) Platelet Count 238 K/UL (150-450) Mean Platelet Volume 7.2 FL (6.5-10.1) Neutrophils (%) (Auto) % (45.0-75.0) Lymphocytes (%) (Auto) % (20.0-45.0) Monocytes (%) (Auto) % (1.0-10.0) Eosinophils (%) (Auto) % (0.0-3.0) Basophils (%) (Auto) % (0.0-2.0) Differential Total Cells Counted 100 Neutrophils % (Manual) 65 % (45-75) Lymphocytes % (Manual) 25 % (20-45) Monocytes % (Manual) 8 % (1-10) Eosinophils % (Manual) 0 % (0-3) Basophils % (Manual) 1 % (0-2) Band Neutrophils 1 % (0-8) Nucleated Red Blood Cells 2 /100 WBC Platelet Estimate Adequate Platelet Morphology Normal Anisocytosis 1+ Reticulocyte Count 2.5 % (0.0-2.0) H Prothrombin Time 11.3 SEC (9.30-11.50) Prothrombin Time INR 1.1 (0.9-1.1) PTT 27 SEC (23-33) Sodium Level 140 MMOL/L (136-145) Potassium Level 3.6 MMOL/L (3.5-5.1) Chloride Level 105 MMOL/L (98-107) Carbon Dioxide Level 22 MMOL/L (21-32) Anion Gap 13 mmol/L (5-15) Blood Urea Nitrogen 5 mg/dL (7-18) L Creatinine 0.7 MG/DL (0.55-1.30) Estimate Glomerular Filtration Rate > 60 mL/min (>60) Glucose Level 94 MG/DL (74-106) Lactic Acid Level 3.20 mmol/L (0.66-2.22) H 1.00 mmol/L (0.66-2.22) Calcium Level 9.8 MG/DL (8.5-10.1) Total Bilirubin 1.3 MG/DL (0.2-1.0) H Direct Bilirubin 0.2 MG/DL (0.0-0.3) Aspartate Amino Transferase (AST) 17 U/L (15-37) Alanine Aminotransferase (ALT) 13 U/L (12-78) Alkaline Phosphatase 73 U/L (46-116) Lactate Dehydrogenase 239 U/L (81-234) H Total Creatine Kinase 67 U/L (26-308) Troponin I 0.000 ng/mL (0.000-0.056) Pro-B-Type Natriuretic Peptide 27 pg/mL (0-125) Total Protein 8.5 G/DL (6.4-8.2) H Albumin 5.0 G/DL (3.4-5.0) Globulin 3.5 g/dL Albumin/Globulin Ratio 1.4 (1.0-2.7) Serum Alcohol < 3 mg/dL Urine Color Red Urine Appearance Turbid Urine pH 8 (4.5-8.0) Urine Specific [place] 1.010 (1.005-1.035) Urine Protein 4+ (NEGATIVE) H Urine Glucose (UA) Negative (NEGATIVE) Urine Ketones 1+ (NEGATIVE) H Urine Occult Blood 5+ (NEGATIVE) H Urine Nitrite Positive (NEGATIVE) H Urine Bilirubin Negative (NEGATIVE) Urine Urobilinogen 1 MG/DL (0.0-1.0) H Urine Leukocyte Esterase 2+ (NEGATIVE) H Urine RBC Tntc /HPF (0 - 2) H Urine WBC 10-15 /HPF (0 - 2) H Urine Squamous Epithelial Cells Moderate /LPF (NONE/OCC) H Urine Bacteria Many /HPF (NONE) H Urine HCG, Qualitative Negative (NEGATIVE) Urine Opiates Screen Negative (NEGATIVE) Urine Barbiturates Screen Negative (NEGATIVE) Phencyclidine (PCP) Screen Negative (NEGATIVE) Urine Amphetamines Screen Negative (NEGATIVE) Urine Benzodiazepines Screen Negative (NEGATIVE) Urine Cocaine Screen Negative (NEGATIVE) Urine Marijuana (THC) Screen Positive (NEGATIVE) H EKG Diagnostic Results Rate: normal Rhythm: NSR ST Segments: no acute changes Rhythm Strip Diag. Results EP Interpretation: yes Rhythm: NSR, no PVC's, no ectopy Chest X-Ray Diagnostic Results Chest X-Ray Diagnostic Results : Chest X-Ray Ordered: Yes # of Views/Limited/Complete: 1 View Indication: Other EP Interpretation: Yes Interpretation: no consolidation, no effusion, no pneumothorax Impression: No acute disease Electronically Signed by: Amadeo Hagen MD Last Vital Signs Date Time Temp Pulse Resp B/P (MAP) Pulse Ox O2 Delivery O2 Flow Rate FiO2 11/11/17 22:50 208.2 68 18 106/65 99 Room Air 208.2 Status: improved Disposition: HOME, SELF-CARE Condition: Improved Scripts Ibuprofen* (MOTRIN*) 600 Mg Tablet 600 MG ORAL Q6H PRN for For Pain, #30 TAB Prov: Amadeo Haegn M.D. 11/11/17 Ondansetron Odt* (ZOFRAN ODT*) 4 Mg Tab.rapdis 4 MG ORAL Q8H PRN for Nausea & Vomiting, #16 TAB 0 Refills Prov: Amadeo Hagen M.D. 11/11/17 Hydrocodone Bit/Acetaminophen 10-325* (NORCO 10-325*) 1 Each Tablet 1 TAB ORAL Q6H PRN for For Pain, #16 TAB 0 Refills PRN PAIN Prov: Amadeo Hagen M.D. 11/11/17 Famotidine (PEPCID) 20 Mg Tablet 20 MG ORAL DAILY, #20 TAB 0 Refills Prov: Amadeo Hagen M.D. 11/11/17 Levofloxacin* (LEVAQUIN*) 500 Mg Tablet 500 MG ORAL DAILY, #7 TAB Prov: Amadeo Hagen M.D. 11/11/17 Amadeo Hagen M.D. Nov 11, 2017 15:22
[2017-11-11 15:41] LABS: HEMATOCRIT 35.8 % (37.0-47.0); HEMOGLOBIN 13.1 G/DL (12.0-16.0); MEAN CORPUSCULAR VOLUME 87 FL (80-99); PLATELET COUNT 238 K/UL (150-450); RED BLOOD COUNT 4.11 M/UL (4.20-5.40); RED CELL DISTRIBUTION WIDTH 12.8 % (11.6-14.8)
[2017-11-11 15:46] LABS: INR 1.1 (0.9-1.1)
[2017-11-11 15:54] LABS: ANION GAP 13 mmol/L (5-15); BLOOD UREA NITROGEN 5 mg/dL (7-18); CALCIUM 9.8 MG/DL (8.5-10.1); CARBON DIOXIDE 22 MMOL/L (21-32); CHLORIDE 105 MMOL/L (98-107); CREATININE 0.7 MG/DL (0.55-1.30); POTASSIUM 3.6 MMOL/L (3.5-5.1); SODIUM 140 MMOL/L (136-145)
[2017-11-11 16:07] LABS: WHITE BLOOD COUNT 23.1 K/UL (4.8-10.8)
[2017-11-11 16:11] LABS: ALANINE AMINOTRANSFERASE 13 U/L (12-78); ALBUMIN/GLOBULIN RATIO 1.4 (1.0-2.7); ALKALINE PHOSPHATASE 73 U/L (46-116); ASPARTATE AMINO TRANSFERASE 17 U/L (15-37); BILIRUBIN,TOTAL 1.3 MG/DL (0.2-1.0); CREATINE KINASE 67 U/L (26-308); LACTATE DEHYDROGENASE 239 U/L (81-234)
[2017-11-11 16:12] LABS: BILIRUBIN,DIRECT 0.2 MG/DL (0.0-0.3)
[2017-11-11 17:13] LABS: APPEARANCE,URINE TURBID; BILIRUBIN, URINE NEGATIVE (NEGATIVE); GLUCOSE, URINE (UA) NEGATIVE (NEGATIVE); KETONES,URINE 1+ (NEGATIVE); LEUKOCYTE ESTERASE ,URINE 2+ (NEGATIVE); NITRITE,URINE POSITIVE (NEGATIVE); PH,URINE 8 (4.5-8.0); PROTEIN,URINE 4+ (NEGATIVE); UROBILINOGEN,URINE 1 MG/DL (0.0-1.0)
[2017-11-11 17:15] LABS: COLOR,URINE RED
[2017-11-11] MEDS ORDERED: DiphenhydrAMINE 50mg/ml Inj IVP ONE (17:30)
[2017-11-11 18:03] VITALS: BP 107/69
[2017-11-11] MEDS ORDERED: ZOFRAN ODT4 MG ORAL ×2 (18:41→19:38)
[2017-11-11] MEDS ORDERED: IBUPROFEN600 MG ORAL ×2 (18:41→19:38)
[2017-11-11] MEDS ORDERED: NORCO 5-325 TA1 EACH ORAL (18:41)
[2017-11-11] MEDS ORDERED: LEVAQUIN500 MG ORAL (18:43)
[2017-11-11] MEDS ORDERED: PEPCID20 MG ORAL (18:47)
[2017-11-11] MEDS ORDERED: NORCO 10-325 T1 EACH ORAL ×2 (19:03→19:38)
[2017-11-11 19:17] VITALS: BP 108/61
[2017-11-11] MEDS ORDERED: oxyCODONE HCL/Acetaminophen 5/325mg ORAL ONE (20:00)
[2017-11-11 22:47] VITALS: BP 106/65
[2017-11-11 22:50] VITALS: BP 106/65
--- NOTE | 2017-11-12 14:54 | Diagnostic Imaging Report ---
Indication: Dyspnea Technique: XRAY Chest 1v Comparison: None Findings: Borderline cardiomegaly. Mediastinal contours are sharp. There is no focal airspace consolidation, pleural effusion or pneumothorax. Osseous structures demonstrate no acute abnormality. There surgical clips in the left upper quadrant. A minute abdominal shield in place. IMPRESSION: No definite radiographic evidence of acute cardiopulmonary disease. Borderline cardiomegaly. Surgical clips in the left upper quadrant. Correlate with surgical history.
== END 2017-11-11 22:50 | disposition home or self-care (01) ==
LOC: EDBD 14:49 → EMR 15:25
DX: D57.00 Hb-SS disease with crisis, unspecified (principal); N39.0 Urinary tract infection, site not specified; J45.909 Unspecified asthma, uncomplicated; R11.2 Nausea with vomiting, unspecified; Z88.5 Allergy status to narcotic agent; Z88.2 Allergy status to sulfonamides; Z88.0 Allergy status to penicillin
CPT/HCPCS: 36415; 71045; 80053; 80307; 81003; 81025; 82248; 82550; 83605; 83615; 83880; 84484; 85007; 85025; 85044; 85610; 85730; 87086; 93005; 96361; 96374; 96375; 99284; G0480; J1170; J1200; J1956; J2405; S0028; 80329

== ENCOUNTER 2018-07-04 12:30 | Inpatient (IN) | payer MEDICARE, OTHER ==
[2018-07-04] VITALS (13 sets, daily range): BP systolic 105–130; BP diastolic 75–94
[~2018-07-04] VITALS: Ht 154.9 cm; Wt 54.0 kg
[~2018-07-04 12:30] MED LIST changes: +LEVAQUIN500 MG ORAL; +NORCO 5-325 TA1 EACH ORAL; +PEPCID20 MG ORAL; +ZOFRAN ODT4 MG ORAL
--- NOTE | 2018-07-04 13:02 | Emergency Room Report ---
History of Present Illness General Chief Complaint: Behavioral Complaint Source: Patient (Shreyas Montana) Present Illness HPI 23-year-old female patient presents the ER brought in by police on 5150 hold. Police report that patient she wanted to kill herself. According to police report patient told her boyfriend she want to kill herself and attempted to jump out of a moving vehicle multiple times. Patient is a poor historian, multiple complaints of subjective pain over entire body. Patient reports a history of suicidal attempts. Patient reports that she is not allowed to have pills because she may take them all killer cells however patient does not currently have a plan for committing suicide. Denies history of depression. Denies fever, chest pain, shortness of breath. Patient denies drug use. Patient reports alcohol use, states she drank a bottle of wine earlier today. Reports history of sickle cell disease. (Shreyas Montana) HPI Pt signed out to me by LETICIA Montana awaiting lab results and final disposition. Dr. Larson continues to be the supervising physician. Please see prior note by LETICIA Montana for full HPI, ROS, Physical Exam, and medical management up-until sign-out. ([place] Avila) Allergies: Coded Allergies: CEFTRIAXONE (Verified Allergy, Unknown, 08/11/17) MORPHINE (Verified Allergy, Unknown, 08/11/17) PENICILLINS (Verified Allergy, Unknown, 08/11/17) SULFA (SULFONAMIDE ANTIBIOTICS) (Verified Allergy, Unknown, 08/11/17) Uncoded Allergies: PENICILLIN (Allergy, Unknown, 11/11/17) SULFA (Allergy, Unknown, 11/11/17) Patient History Past Medical History: see triage record Reviewed Nursing Documentation: PMH: Agreed; PSxH: Agreed (Shreyas Montana) Nursing Documentation-PMH Hx Asthma: Yes Hx Cancer: No Hx Gastrointestinal Problems: No History Of Psychiatric Problem: No - Depression; Personality Disorder Hx Neurological Problems: No (Shreyas Montana) Review of Systems All Other Systems: negative except mentioned in HPI (Shreyas Montana) Physical Exam Vital Signs Date Time Temp Pulse Resp B/P (MAP) Pulse Ox O2 Delivery O2 Flow Rate FiO2 07/04/18 12:23 98.4 87 16 118/86 100 Room Air Sp02 EP Interpretation: reviewed, normal General Appearance: well appearing, no apparent distress, alert, GCS 15, non- toxic Head: normocephalic, atraumatic Eyes: bilateral eye normal inspection, bilateral eye PERRL ENT: hearing grossly normal, normal pharynx, no angioedema, normal voice, uvula midline, moist mucus membranes Neck: full range of motion Respiratory: lungs clear, normal breath sounds, no rhonchi, no respiratory distress, no accessory muscle use, no wheezing, speaking full sentences Cardiovascular #1: regular rate, rhythm, no edema Gastrointestinal: non tender, soft, no mass, non-distended, no guarding, no rebound Musculoskeletal: back normal, digits/nails normal, gait/station normal, normal range of motion, non-tender Neurologic: alert, oriented x3, responsive, motor strength/tone normal, sensory intact Psychiatric: mood/affect normal Skin: no rash (Shreyas Montana) Medical Decision Making PA Attestation Dr. Briones is my supervising Physician whom patient management has been discussed with. Medicare Attestation I, LETICIA Bennett, have personally evaluated this patient. Laboratory tests have been reviewed and addressed accordingly. The patient is deemed to present a danger to themselves and/or others. This is based on the exam, history ( provided by patient, EMS/[facility] and/or family) and observed or reported behavior. Attempts for non-invasive measures have been considered and/or attempted, however, have been futile. It is in the best interest of the nursing staff, the patient, and others involved in this patient's care that behavioral restraints be applied. Patient evaluation reveals the following: (Shreyas Montana) PA Attestation Dr. Larson is my supervising Physician whom patient management has been discussed with. ([place]) Diagnostic Impression: Primary Impression: Behavioral disorder Additional Impression: Sickle cell crisis ER Course Pt. presents to the ED c/o behavioral complaint. Ddx considered but are not limited to anxiety, depression, drug use, alcohol use , behavioral disorder, sickle cell crisis. Vital signs: are WNL, pt. is afebrile Ordered labs, urine drug screen, serum alcohol. ER COURSE: Patient is on 5150 hold. Ordered sitter for patient. UDS positive for THC, remained negative WBC is elevated, consistent with previous visit, may be related to sickle cell crisis. No fever or obvious signs of infection, do not believe patient requires antibiotics at this time. Provide patient with IV fluids, we will recheck WBCs. Discussed patient care with Dr. Briones, agrees with assessment and treatment plan. Provided patient with pain medication, states normally takes [place] with hydralazine to prevent allergy symptoms. Patient attempting to leave from ER, becoming combative, I believe this patient requires chemical and physical restraints at this time. Patient signed out to LETICIA Lujan. - Please note that this Emergency Department Report was dictated using [employer] Productionsmedical technologist generalist technology software, occasionally this can lead to erroneous entry secondary to interpretation by the dictation equipment. Labs Test 07/04/18 13:05 White Blood Count 23.8 K/UL (4.8-10.8) Red Blood Count 3.91 M/UL (4.20-5.40) Hemoglobin 11.6 G/DL (12.0-16.0) Hematocrit 33.9 % (37.0-47.0) Mean Corpuscular Volume 87 FL (80-99) Mean Corpuscular Hemoglobin 29.8 PG (27.0-31.0) Mean Corpuscular Hemoglobin Concent 34.4 G/DL (32.0-36.0) Red Cell Distribution Width 13.9 % (11.6-14.8) Platelet Count 365 K/UL (150-450) Mean Platelet Volume 6.2 FL (6.5-10.1) Neutrophils (%) (Auto) % (45.0-75.0) Lymphocytes (%) (Auto) % (20.0-45.0) Monocytes (%) (Auto) % (1.0-10.0) Eosinophils (%) (Auto) % (0.0-3.0) Basophils (%) (Auto) % (0.0-2.0) Differential Total Cells Counted 100 Neutrophils % (Manual) 79 % (45-75) Lymphocytes % (Manual) 7 % (20-45) Monocytes % (Manual) 8 % (1-10) Eosinophils % (Manual) 1 % (0-3) Basophils % (Manual) 0 % (0-2) Band Neutrophils 5 % (0-8) Platelet Estimate Adequate Platelet Morphology Normal Hypochromasia 1+ Anisocytosis 1+ Urine Color Pale yellow Urine Appearance Clear Urine pH 5 (4.5-8.0) Urine Specific [place] 1.020 (1.005-1.035) Urine Protein 2+ (NEGATIVE) Urine Glucose (UA) Negative (NEGATIVE) Urine Ketones Negative (NEGATIVE) Urine Blood Negative (NEGATIVE) Urine Nitrite Negative (NEGATIVE) Urine Bilirubin Negative (NEGATIVE) Urine Urobilinogen Normal MG/DL (0.0-1.0) Urine Leukocyte Esterase Negative (NEGATIVE) Urine RBC 0-2 /HPF (0 - 2) Urine WBC 0-2 /HPF (0 - 2) Urine Squamous Epithelial Cells Few /LPF (NONE/OCC) Urine Bacteria Few /HPF (NONE) Urine Mucus Few /LPF (NONE/OCC) Urine HCG, Qualitative Negative (NEGATIVE) Sodium Level 144 MMOL/L (136-145) Potassium Level 4.7 MMOL/L (3.5-5.1) Chloride Level 108 MMOL/L (98-107) Carbon Dioxide Level 22 MMOL/L (21-32) Anion Gap 14 mmol/L (5-15) Blood Urea Nitrogen 10 mg/dL (7-18) Creatinine 0.7 MG/DL (0.55-1.30) Estimat Glomerular Filtration Rate > 60 mL/min (>60) Glucose Level 73 MG/DL (74-106) Calcium Level 9.9 MG/DL (8.5-10.1) Total Bilirubin 1.5 MG/DL (0.2-1.0) Direct Bilirubin 0.3 MG/DL (0.0-0.3) Aspartate Amino Transf (AST/SGOT) 20 U/L (15-37) Alanine Aminotransferase (ALT/SGPT) 8 U/L (12-78) Alkaline Phosphatase 81 U/L (46-116) Total Creatine Kinase 137 U/L (26-308) Total Protein 8.9 G/DL (6.4-8.2) Albumin 4.9 G/DL (3.4-5.0) Globulin 4.0 g/dL Albumin/Globulin Ratio 1.2 (1.0-2.7) Salicylates Level 3.7 ug/mL (2.8-20) Urine Opiates Screen Negative (NEGATIVE) Acetaminophen Level < 3 MCG/ML (10-30) Urine Barbiturates Screen Negative (NEGATIVE) Phencyclidine (PCP) Screen Negative (NEGATIVE) Urine Amphetamines Screen Negative (NEGATIVE) Urine Benzodiazepines Screen Negative (NEGATIVE) Urine Cocaine Screen Negative (NEGATIVE) Urine Marijuana (THC) Screen Positive (NEGATIVE) Serum Alcohol < 2 mg/dL (Shreyas Montana) ER Course Pt signed out to me by LETICIA Montana awaiting lab results and final disposition. Dr. Larson continues to be the supervising physician. Please see prior note by LETICIA Montana for full HPI, ROS, Physical Exam, and medical management up-until sign-out. Initial labs showed leukocytosis, repeat CBC - pt continues to have elevated WBC 's. Reticulocyte Count is ordered, and pt. will be admitted for leukocytosis, possible sickle cell crisis. Dr. Anderson is contacted for psychiatric evaluation. Pt is admitted awaiting accepting physician. (Le Avila) Last Vital Signs Date Time Temp Pulse Resp B/P (MAP) Pulse Ox O2 Delivery O2 Flow Rate FiO2 07/04/18 12:37 87 16 Room Air 07/04/18 12:23 98.4 118/86 100 (Shreyas Montana) Disposition: ADMITTED INPATIENT Condition: Serious Signed Out To: Dr. Schmidt Physician Consult: Dr. Anderson (Le Avila) Shreyas Montana Jul 04, 2018 13:02 Le Avila Jul 04, 2018 21:51
[2018-07-04 13:34] LABS: APPEARANCE,URINE CLEAR; BILIRUBIN, URINE NEGATIVE (NEGATIVE); COLOR,URINE PALE YELLOW; GLUCOSE, URINE (UA) NEGATIVE (NEGATIVE); KETONES,URINE NEGATIVE (NEGATIVE); LEUKOCYTE ESTERASE ,URINE NEGATIVE (NEGATIVE); NITRITE,URINE NEGATIVE (NEGATIVE); PH,URINE 5 (4.5-8.0); PROTEIN,URINE 2+ (NEGATIVE); UROBILINOGEN,URINE NORMAL MG/DL (0.0-1.0)
[2018-07-04 13:43] LABS: HEMATOCRIT 33.9 % (37.0-47.0); HEMOGLOBIN 11.6 G/DL (12.0-16.0); MEAN CORPUSCULAR VOLUME 87 FL (80-99); PLATELET COUNT 365 K/UL (150-450); RED BLOOD COUNT 3.91 M/UL (4.20-5.40); RED CELL DISTRIBUTION WIDTH 13.9 % (11.6-14.8)
[2018-07-04 13:44] LABS: WHITE BLOOD COUNT 23.8 K/UL (4.8-10.8)
[2018-07-04 13:47] LABS: ANION GAP 14 mmol/L (5-15); BLOOD UREA NITROGEN 10 mg/dL (7-18); CALCIUM 9.9 MG/DL (8.5-10.1); CARBON DIOXIDE 22 MMOL/L (21-32); CHLORIDE 108 MMOL/L (98-107); CREATININE 0.7 MG/DL (0.55-1.30); POTASSIUM 4.7 MMOL/L (3.5-5.1); SODIUM 144 MMOL/L (136-145)
[2018-07-04 14:00] LABS: ALANINE AMINOTRANSFERASE 8 U/L (12-78); ALBUMIN 4.9 G/DL (3.4-5.0); ALBUMIN/GLOBULIN RATIO 1.2 (1.0-2.7); ALKALINE PHOSPHATASE 81 U/L (46-116); ASPARTATE AMINO TRANSFERASE 20 U/L (15-37); BILIRUBIN,TOTAL 1.5 MG/DL (0.2-1.0)
[2018-07-04 14:01] LABS: BILIRUBIN,DIRECT 0.3 MG/DL (0.0-0.3)
[2018-07-04] MEDS ORDERED: NKM (14:16)
[2018-07-04] MEDS ORDERED: Acetaminophen 500mg (ES) tab ORAL ONE (15:00)
[2018-07-04 15:23] LABS: CREATINE KINASE 137 U/L (26-308)
[2018-07-04] MEDS ORDERED: Norco 5mg/325mg tab ORAL ONE (16:15)
[2018-07-04] MEDS ORDERED: HydrOXYzine tab 25mg tab ORAL ONE (16:15)
[2018-07-04] MEDS ORDERED: LORazepam Inj 2mg/ml 1ml ONE (17:20)
[2018-07-04] MEDS ORDERED: DiphenhydrAMINE 50mg/ml Inj ONE (17:20)
[2018-07-04] MEDS ORDERED: Haloperidol 5mg/ml Inj ONE (17:21)
[2018-07-04] MEDS ORDERED: DiphenhydrAMINE 50mg/ml Inj IVP ONE (17:30)
[2018-07-04] MEDS ORDERED: Haloperidol 5mg/ml Inj IM ONE (17:30)
[2018-07-04] MEDS ORDERED: LORazepam Inj 2mg/ml 1ml IV ONE (17:30)
[2018-07-04 18:45] LABS: HEMATOCRIT 29.3 % (37.0-47.0); HEMOGLOBIN 10.3 G/DL (12.0-16.0); MEAN CORPUSCULAR VOLUME 86 FL (80-99); PLATELET COUNT 297 K/UL (150-450); RED BLOOD COUNT 3.41 M/UL (4.20-5.40); RED CELL DISTRIBUTION WIDTH 13.4 % (11.6-14.8)
[2018-07-05] VITALS: BP 126/82
[2018-07-05 02:00] VITALS: BP 123/79
[2018-07-05 03:00] VITALS: BP 125/85
[2018-07-05] MEDS ORDERED: Sodium Chloride 500ML 550 ML IV SCH (03:18)
[2018-07-05 04:00] VITALS: BP 130/75
[2018-07-05] MEDS: Norco 5mg/325mg tab ORAL PRN ×2 (05:54→11:44)
[2018-07-05] MEDS ORDERED: D5 1/2NS 1,000 ML IV SCH (06:00)
[2018-07-05 07:24] LABS: HEMATOCRIT 28.1 % (37.0-47.0); HEMOGLOBIN 10.1 G/DL (12.0-16.0); MEAN CORPUSCULAR VOLUME 85 FL (80-99); PLATELET COUNT 292 K/UL (150-450); RED BLOOD COUNT 3.31 M/UL (4.20-5.40); RED CELL DISTRIBUTION WIDTH 13.4 % (11.6-14.8); WHITE BLOOD COUNT 20.3 K/UL (4.8-10.8)
[2018-07-05 08:00] VITALS: BP 102/61
[2018-07-05] MEDS ORDERED: Heparin 5000 units/ml inj SUBQ SCH (09:00)
[2018-07-05 12:00] VITALS: BP 100/68
--- NOTE | 2018-07-05 14:51 | History & Physical ---
History and Physical History & Physicial Tristen Everett MD Jul 05, 2018 14:51
[2018-07-05] MEDS ORDERED: LEXAPRO10 MG ORAL ×2 (15:18→15:19)
--- NOTE | 2018-07-05 20:15 | History and Physical Report ---
DATE OF ADMISSION: 07/04/2018 CHIEF COMPLAINT: Suicidal ideation. HISTORY OF PRESENT ILLNESS: This 23-year-old female with past medical history significant for sickle cell disease with frequent sickle cell crisis, history of left ovary resection due to the cyst as well as gallbladder, and cholecystectomy who was presented to the hospital accompanied with police with a 5150 hold. Police reported that the patient wanted to kill herself. According to the police report, the patient told her boyfriend that she wants to kill herself and attempted to jump out of the moving car multiple times. The patient is a poor historian. Multiple complaints about subjective pain over entire body. The patient reported history of suicidal attempt. She is not allowed to have pills because she may take them all to kill herself. However, the patient does not currently have a plan to commit suicide. Denies any history of depression. Denies any fever, chills, chest pain, or shortness of breath. Denies any history of alcohol abuse; however, she stated that she drank a bottle of wine earlier on the day of admission. Shortly after initial evaluation at emergency, the patient was admitted to the hospital with behavior disorder with suicidal ideation as well as sickle cell disease and leukocytosis. PAST MEDICAL HISTORY AND PAST SURGICAL HISTORY: As above. History of sickle cell disease, history of left ovary resection due to the cyst, and cholecystectomy. MEDICATIONS: At home, refer to medication reconciliation. ALLERGIES: To ceftriaxone, morphine, penicillin, and sulfa. SOCIAL HISTORY: The patient denies any smoking. Social drinks, but this time tried to drink a little bit more than usual. No substance abuse. FAMILY HISTORY: Mother has a history of sickle cell. REVIEW OF SYSTEMS: Mostly as above. Denies any dysuria, frequency, or hematuria. Denies any hemoptysis or hematochezia. Complained about back pain. Denies any loss of consciousness. Denies any suicidal or homicidal ideation at this time. Denies any fall or head trauma. LABORATORY DATA: On admission from the ER, WBC of 23, hemoglobin 11, hematocrit 33, and platelets is 365. Sodium 144, potassium 4.7, chloride 108, bicarbonate 22, BUN 10, creatinine 0.7, and glucose 73. Total bilirubin of 1.5. Total CK level is 137. Albumin is 4.9. Urine drug screen positive for marijuana. Salicylate level is 3.7. Acetaminophen level is negative. Alcohol level is negative. Urinalysis, +2 protein, few mucosa, otherwise nonexclusive. ASSESSMENT: 1. Suicidal ideation. 2. Leukocytosis, most likely secondary to the sickle cell crisis. 3. Sickle cell disease. 4. Lower back pain, possibly due to crisis. PLAN: Admit the patient to Med/Surg. We will follow up with Dr. Anderson from Psychiatry who has seen the patient already. At this time, the patient is cleared from psychiatric point of view. Continue IV hydration. If the status improves, consider discharge home to be followed up with sickle cell clinic at [facility] next . Code status is Full Code. DVT prophylaxis, heparin subcutaneous. Tristen Everett M.D. DR: THEA JOB#: [id number] CC:
--- NOTE | 2018-07-06 00:37 | Consultation ---
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 the pt stated that she was not suicidal and would like to be released. the pt stated that she would not take antidepressants and would not want to follow up with mental health Allergies: Coded Allergies: CEFTRIAXONE (Verified Allergy, Unknown, 08/11/17) MORPHINE (Verified Allergy, Unknown, 08/11/17) PENICILLINS (Verified Allergy, Unknown, 08/11/17) SULFA (SULFONAMIDE ANTIBIOTICS) (Verified Allergy, Unknown, 08/11/17) Uncoded Allergies: PENICILLIN (Allergy, Unknown, 11/11/17) SULFA (Allergy, Unknown, 11/11/17) Medication History Scheduled Escitalopram Oxalate* (Lexapro*), 10 MG ORAL DAILY, (Reported) Escitalopram Oxalate* (Lexapro*), 10 MG ORAL DAILY, (Reported) Famotidine (Pepcid), 20 MG ORAL DAILY Levofloxacin* (Levaquin*), 500 MG ORAL DAILY No Known Medications* (NKM - No Known Medications*), 0 ., (Reported) Scheduled PRN Hydrocodone Bit/Acetaminophen 10-325* ([place] 10-325*), 1 TAB ORAL Q6H PRN for For Pain Ibuprofen* (Motrin*), 600 MG ORAL Q6H PRN for For Pain Ondansetron Odt* (Zofran Odt*), 4 MG ORAL Q8H PRN for Nausea & Vomiting Patient History History Provided By: Patient, Medical Record, PMD Healthcare decision maker Resuscitation status Full Code Advanced Directive on File No Past Medical/Surgical History Past Medical/Surgical History: (1) Abdominal pain (2) Vomiting (3) UTI (urinary tract infection) (4) Sickle cell crisis Review of Systems Psychiatric: Reports: depressed feelings, emotional problems Physical Exam General Appearance: no apparent distress, alert, thin Neurologic: oriented x 3, responsive, depressed affect Last 24 Hour Vital Signs Date Time Temp Pulse Resp B/P (MAP) Pulse Ox O2 Delivery O2 Flow Rate FiO2 07/05/18 12:00 98.5 58 20 100/68 (79) 98 07/05/18 09:33 Room Air 07/05/18 09:00 Room Air 07/05/18 08:00 98.4 63 18 102/61 (75) 100 07/05/18 06:24 98.1 07/05/18 04:00 97.9 80 20 130/75 (93) 97 07/05/18 03:15 98.1 77 18 125/85 100 Room Air 07/05/18 03:00 98.1 77 18 125/85 100 Room Air 07/05/18 02:00 97.6 80 18 123/79 100 Room Air Intake and Output 07/05/18 07/06/18 19:00 07:00 Intake Total 800 ml Balance 800 ml IV Total 800 ml Laboratory Tests Test 07/05/18 06:55 White Blood Count 20.3 K/UL (4.8-10.8) H Red Blood Count 3.31 M/UL (4.20-5.40) L Hemoglobin 10.1 G/DL (12.0-16.0) L Hematocrit 28.1 % (37.0-47.0) L Mean Corpuscular Volume 85 FL (80-99) Mean Corpuscular Hemoglobin 30.6 PG (27.0-31.0) Mean Corpuscular Hemoglobin Concent 35.9 G/DL (32.0-36.0) Red Cell Distribution Width 13.4 % (11.6-14.8) Platelet Count 292 K/UL (150-450) Mean Platelet Volume 6.5 FL (6.5-10.1) Neutrophils (%) (Auto) % (45.0-75.0) Lymphocytes (%) (Auto) % (20.0-45.0) Monocytes (%) (Auto) % (1.0-10.0) Eosinophils (%) (Auto) % (0.0-3.0) Basophils (%) (Auto) % (0.0-2.0) Differential Total Cells Counted 100 Neutrophils % (Manual) 72 % (45-75) Lymphocytes % (Manual) 15 % (20-45) L Monocytes % (Manual) 12 % (1-10) H Eosinophils % (Manual) 0 % (0-3) Basophils % (Manual) 1 % (0-2) Band Neutrophils 0 % (0-8) Nucleated Red Blood Cells 1 /100 WBC Platelet Estimate Adequate Platelet Morphology Normal Hypochromasia 1+ Anisocytosis 1+ Height (Feet): 5 Height (Inches): 1.00 Weight (Pounds): 119 Assessment/Plan Problem List: (1) MDD (major depressive disorder), recurrent episode ICD Codes: F33.9 - Major depressive disorder, recurrent, unspecified SNOMED: [id number] Assessment/Plan The pt is not at imminent dts/dto the pt was prescribed Celexa 20mg q daily provided annabel/Hudson Chang MD Jul 06, 2018 00:37
--- NOTE | 2018-07-07 07:53 | Discharge Summary ---
Discharge Summary Discharge Summary _ DATE OF ADMISSION: 07/04/2018 DATE OF DISCHARGE: 07/05/2018 DISCHARGED BY: Dr. Everett REASON FOR ADMISSION: 23 years old female with history of sickle cell disease, left ovary resection due to cyst, cholecystectomy, with frequent sickle cell crisis, presented to emergency department accompanied with police on 5150 hold. According to police, patient attempted to jump out of the moving car multiple times. Patient verbalized multiple complaints about subjective pain over the entire body. She denied fever, chills ,chest pain or shortness of breath . She denied history of alcohol abuse, however on the day of admission she was drinking a bottle of wine earlier. Upon evaluation vital signs were stable. Laboratory workup revealed leukocytosis WBC 23.8. Hemoglobin 11.6 hematocrit 33.9. Chemistry was unremarkable ,stable renal parameters. Urine toxicology screen was positive for marijuana. Serum salicylate, Tylenol and alcohol level were negative. Urinalysis revealed no evidence of UTI. Urine test was negative. Patient admitted with diagnoses of suicidal ideation, leukocytosis, most likely secondary to sickle cell crisis, sickle cell disease, lower back pain possibly due to crisis. CONSULTANTS: psychiatrist [facility]RSE: Patient admitted to medical surgical floor. Patient started on generous IV hydration. Supplemental oxygen provided as needed to keep pulse oximetry above 92%. Psychiatric consult was requested. DVT prophylaxis provided. Pain management was addressed as needed. Bowel regimen instituted. Psychiatrist seen and evaluated patient , diagnosed patient with major depressive disorder with recurrent episodes. Psychiatrist concluded , that patient was not at imminent danger to self or to others. Patient was prescribed Celexa 20 mg daily ,prescription provided. Reality orientation and supportive therapy provided. Patient remained afebrile, leukocytosis trending down. Hemoglobin 10.1 hematocrit 28.1. Patient was stable for discharge home and follow-up with sickle cell clinic at [facility] next week/ as she scheduled (follows on a regular basis). Due to rapid and unexpected improvement in patient's condition, the patient was discharged in one day. FINAL DIAGNOSES: Suicidal ideation Sickle cell disease Leukocytosis, most likely secondary to sickle cell crisis Lower back pain probably due to crisis Major depressive disorder, recurrent episode DISCHARGE MEDICATIONS: See Medication Reconciliation list. DISCHARGE INSTRUCTIONS: Patient was discharged home. Patient to follow-up with [facility] sickle cell clinic next as scheduled. I have been assigned to dictate discharge summary for this account. I was not involved in the patient's management. Gisela Arizmendi NP Jul 07, 2018 07:53
== END 2018-07-05 17:15 | disposition home or self-care (01) | DRG 885 ==
LOC: EDBD 12:30 → EMR 13:03 → 3E 23:08 → EDBEDREQ 07-05 01:52
DX: F33.9 Major depressive disorder, recurrent, unspecified (principal); D57.00 Hb-SS disease with crisis, unspecified; R45.851 Suicidal ideations; M54.5 Low back pain; Z88.6 Allergy status to analgesic agent; Z88.0 Allergy status to penicillin; Z88.2 Allergy status to sulfonamides; Z88.8 Allergy status to other drugs, medicaments and biological substances
CPT/HCPCS: 36415; 80053; 80307; 80329; 81003; 81025; 82248; 82550; 85007; 85025; 85044; 87040; 96361; 96372; 96374; 96375; 99285

== ENCOUNTER 2018-07-11 21:38 | Emergency (ER) | payer MEDICARE, OTHER ==
[~2018-07-11] VITALS: Ht 154.9 cm; Wt 61.2 kg
[~2018-07-11 21:38] MED LIST changes: +LEXAPRO10 MG ORAL; +NKM
[2018-07-11] MEDS ORDERED: HYDROmorphone 1mg/ml Carpuject IVP ONE (22:00)
[2018-07-11] MEDS ORDERED: Promethazine HCl 25 MG in NS 55 ML IVPB ONE (22:00)
[2018-07-11 22:53] VITALS: BP 133/75
[2018-07-11 23:00] LABS: APPEARANCE,URINE CLEAR; BILIRUBIN, URINE NEGATIVE (NEGATIVE); COLOR,URINE PALE YELLOW; GLUCOSE, URINE (UA) NEGATIVE (NEGATIVE); KETONES,URINE NEGATIVE (NEGATIVE); LEUKOCYTE ESTERASE ,URINE NEGATIVE (NEGATIVE); NITRITE,URINE NEGATIVE (NEGATIVE); PH,URINE 6.5 (4.5-8.0); PROTEIN,URINE 1+ (NEGATIVE); UROBILINOGEN,URINE NORMAL MG/DL (0.0-1.0)
[2018-07-11 23:03] LABS: ANION GAP 11 mmol/L (5-15); BLOOD UREA NITROGEN 7 mg/dL (7-18); CALCIUM 9.5 MG/DL (8.5-10.1); CARBON DIOXIDE 25 MMOL/L (21-32); CHLORIDE 108 MMOL/L (98-107); CREATININE 0.7 MG/DL (0.55-1.30); POTASSIUM 3.9 MMOL/L (3.5-5.1); SODIUM 144 MMOL/L (136-145)
[2018-07-11 23:09] LABS: HEMATOCRIT 29.5 % (37.0-47.0); HEMOGLOBIN 10.7 G/DL (12.0-16.0); MEAN CORPUSCULAR VOLUME 88 FL (80-99); PLATELET COUNT 288 K/UL (150-450); RED BLOOD COUNT 3.37 M/UL (4.20-5.40); RED CELL DISTRIBUTION WIDTH 14.9 % (11.6-14.8)
[2018-07-11 23:11] LABS: WHITE BLOOD COUNT 28.2 K/UL (4.8-10.8)
[2018-07-12 00:07] VITALS: BP 98/59
[2018-07-12] MEDS ORDERED: HYDROCODON-ACE1 EA15 ORAL (01:22)
--- NOTE | 2018-07-12 01:23 | Emergency Room Report ---
History of Present Illness General Chief Complaint: Pain Source: Patient Present Illness HPI Is a 23-year-old female with history of sickle cell with frequent sickle cell crisis and hospital visit. She is not on any pain medication. She said her pain usually occur during her menstruation. She started her menstruation. She has generalized body pain is 10 out of 10. She came in by EMS. She was screaming and very histrionic. No fever chills but no nausea no vomiting. Nothing made it better. Nothing made it worse. Similar symptom in the past. She was just here recently for sickle cell crisis and was just discharged. Allergies: Coded Allergies: CEFTRIAXONE (Verified Allergy, Unknown, 08/11/17) MORPHINE (Verified Allergy, Unknown, 08/11/17) PENICILLINS (Verified Allergy, Unknown, 08/11/17) SULFA (SULFONAMIDE ANTIBIOTICS) (Verified Allergy, Unknown, 08/11/17) Uncoded Allergies: PENICILLIN (Allergy, Unknown, 11/11/17) SULFA (Allergy, Unknown, 11/11/17) Patient History Past Medical History: see triage record, old chart reviewed Past Surgical History: other Pertinent Family History: none Social History: Denies: smoking Last Menstrual Period: unable to obtain. Now: No Immunizations: other Reviewed Nursing Documentation: PMH: Agreed; PSxH: Agreed Nursing Documentation-PMH Hx Cardiac Problems: Yes - sickle cell Hx Asthma: Yes Hx Cancer: No Hx Gastrointestinal Problems: No History Of Psychiatric Problem: Yes Hx Neurological Problems: No Review of Systems Eye: Denies: eye pain, blurred vision ENT: Denies: ear pain, nose congestion, throat swelling Respiratory: Denies: cough, shortness of breath Cardiovascular: Denies: chest pain, palpitations Gastrointestinal: Denies: abdominal pain, diarrhea, nausea, vomiting Musculoskeletal: Reports: back pain, joint pain, muscle pain Skin: Denies: rash Neurological: Denies: headache, numbness Endocrine: Denies: increased thirst, increased urine Hematologic/Lymphatic: Denies: easy bruising All Other Systems: negative except mentioned in HPI Physical Exam Vital Signs Date Time Temp Pulse Resp B/P (MAP) Pulse Ox O2 Delivery O2 Flow Rate FiO2 07/11/18 21:40 98.1 74 18 138/71 99 Room Air vitals normal Sp02 EP Interpretation: reviewed, normal General Appearance: well appearing, no apparent distress, alert, other - Very histrionic. Screaming for pain medication. Head: normocephalic, atraumatic Eyes: bilateral eye PERRL, bilateral eye EOMI ENT: hearing grossly normal, normal pharynx Neck: full range of motion, supple, no meningismus Respiratory: chest non-tender, lungs clear, normal breath sounds Cardiovascular #1: regular rate, rhythm, no murmur Gastrointestinal: normal bowel sounds, non tender, no mass, no organomegaly, no bruit, non-distended Musculoskeletal: back normal, gait/station normal, normal range of motion Psychiatric: mood/affect normal Skin: warm/dry Medical Decision Making Diagnostic Impression: Primary Impression: Sickle cell crisis Additional Impression: Leukocytosis, unspecified ER Course Patient with sickle cell crisis. She also has a leukocytosis which is probably a stress response. This is similar to previous visit. No evidence of infection. She is sleeping comfortably now after pain medication. We'll discharge home. Lab Results Impression labs with leukocytosis Last Vital Signs Date Time Temp Pulse Resp B/P (MAP) Pulse Ox O2 Delivery O2 Flow Rate FiO2 07/12/18 00:07 98.4 78 18 98/59 99 Room Air Status: improved Disposition: HOME, SELF-CARE Condition: Stable Scripts Hydrocodone/Acetaminophen 5-325* (HYDROCODONE/ACETAMINOPHEN 5-325*) 1 Each Tablet 1 TAB ORAL Q6H PRN for For Pain, #15 TAB 0 Refills Prov: Jah Burns MD 07/12/18 Referrals: NOT CHOSEN IPA/,REFERRING (PCP) Additional Instructions: Follow-up with your clinical product specialist in 3-5 days. Return if symptom worsen. Jah Burns MD Jul 12, 2018 01:23
[2018-07-12 01:37] VITALS: BP 102/62
== END 2018-07-12 01:30 | disposition home or self-care (01) ==
LOC: EDBD 21:38 → EMR 22:11
DX: D57.00 Hb-SS disease with crisis, unspecified (principal); D72.829 Elevated white blood cell count, unspecified; Z88.6 Allergy status to analgesic agent; Z88.2 Allergy status to sulfonamides; Z88.0 Allergy status to penicillin
CPT/HCPCS: 36415; 80048; 80307; 81001; 81025; 85007; 85025; 85044; 96365; 96375; 99284; J1170; J2550

== ENCOUNTER 2018-10-31 15:14 | Emergency (ER) | payer OTHER ==
[~2018-10-31] VITALS: Ht 172.7 cm; Wt 52.2 kg
[~2018-10-31 15:14] MED LIST changes: +HYDROCODON-ACE1 EA15 ORAL
[2018-10-31] MEDS ORDERED: Metoclopramide 10mg/2ml Inj IVP ONE (15:30)
[2018-10-31] MEDS ORDERED: DiphenhydrAMINE 50mg/ml Inj IVP ONE (15:30)
[2018-10-31] MEDS ORDERED: Hydromorphone 0.5mg/0.5ml inj IVP ONE (15:30)
--- NOTE | 2018-10-31 15:31 | Emergency Room Report ---
History of Present Illness General Chief Complaint: Pain Source: Patient Present Illness HPI Patient presents with increased back and leg pain for 2 days. She feels this is worsening of her sickle cell. She's not sure she has SS or SC disease. The last blood transfusion she had was in 2016. 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 She denies any fevers or chills. Her menstruation is irregular and it was early for her. She's not sure she's this time. This morning she had vomiting that she's not sure where that came from. There is no blood. She denies any diarrhea. There is no dysuria. The pain is 8/10 aching in her back and legs and is constant. She is allergic to morphine. She states she cannot fill narcotics because of a prior suicide attempt. She was admitted here June 2018 for a suicide attempt jumping out of a moving car. This is the discharge diagnoses from that visit: Suicidal ideation Sickle cell disease Leukocytosis, most likely secondary to sickle cell crisis Lower back pain probably due to crisis Major depressive disorder, recurrent episode She denies SI or HI at this time. She states she has to go to emergency departments in order to control the pain. Allergies: Coded Allergies: CEFTRIAXONE (Verified Allergy, Unknown, 08/11/17) MORPHINE (Verified Allergy, Unknown, 08/11/17) PENICILLINS (Verified Allergy, Unknown, 08/11/17) SULFA (SULFONAMIDE ANTIBIOTICS) (Verified Allergy, Unknown, 08/11/17) Uncoded Allergies: PENICILLIN (Allergy, Unknown, 11/11/17) SULFA (Allergy, Unknown, 11/11/17) Patient History Past Medical History: see triage record Past Surgical History: michael, other - splenectomy, oopherectomy due to cyst Social History: Reports: drug use - thc; Denies: smoking, alcohol use Social History Narrative at home Last Menstrual Period: OCTOBER 2018 Reviewed Nursing Documentation: PMH: Agreed; PSxH: Agreed Nursing Documentation-PMH Past Medical History: No History, Except For Hx Asthma: Yes Hx Cancer: No Hx Gastrointestinal Problems: No Hx Neurological Problems: No Review of Systems All Other Systems: negative except mentioned in HPI Physical Exam Vital Signs Date Time Temp Pulse Resp B/P (MAP) Pulse Ox O2 Delivery O2 Flow Rate FiO2 10/31/18 15:11 98.1 76 16 109/75 97 Room Air Sp02 EP Interpretation: reviewed, normal General Appearance: well appearing, no apparent distress, GCS 15 Head: normocephalic Eyes: bilateral eye normal inspection, bilateral eye PERRL, bilateral eye EOMI ENT: moist mucus membranes Neck: supple Respiratory: lungs clear, normal breath sounds Cardiovascular #1: regular rate, rhythm Cardiovascular #2: 2+ radial (R) Gastrointestinal: normal inspection, normal bowel sounds, non tender, no mass, non-distended Musculoskeletal: gait/station normal, normal range of motion, tender - lumbar area Neurologic: alert, oriented x3, grossly normal Psychiatric: mood/affect normal, no suicidal/homicidal ideation Skin: normal inspection, warm/dry Medical Decision Making Diagnostic Impression: Primary Impression: Sickle cell anemia with pain Additional Impressions: Leukocytosis Qualified Codes: D72.828 - Other elevated white blood cell count Vomiting Qualified Codes: R11.2 - Nausea with vomiting, unspecified ER Course Patient presents with back and leg pain consistent with her sickle cell. Differential includes food poisoning, viral syndrome, sickle cell crisis, urinary tract infection amongst others. Evaluation will be with labs including LDH and reticulocyte count. The patient will be treated with IV hydration, Reglan and Benadryl, Pepcid and Dilaudid. Labs significant for leukocytosis, minimal anemia. Retic 3.5. Slightly elevated bili, normal LDH. Patient sleeping. When awakened, she complains of continued pain, but states she has improved. Discussed pain control at home. Prior to discharge, patient seen sticking finger down throat and vomiting. Zofran repeated. Patient stable for outpatient observation and treatment. Laboratory Tests Test 10/31/18 15:30 White Blood Count 27.7 K/UL (4.8-10.8) *H Red Blood Count 3.67 M/UL (4.20-5.40) L Hemoglobin 11.5 G/DL (12.0-16.0) L Hematocrit 31.2 % (37.0-47.0) L Mean Corpuscular Volume 85 FL (80-99) Mean Corpuscular Hemoglobin 31.2 PG (27.0-31.0) H Mean Corpuscular Hemoglobin Concent 36.8 G/DL (32.0-36.0) H Red Cell Distribution Width 13.5 % (11.6-14.8) Platelet Count 347 K/UL (150-450) Mean Platelet Volume 5.7 FL (6.5-10.1) L Neutrophils (%) (Auto) % (45.0-75.0) Lymphocytes (%) (Auto) % (20.0-45.0) Monocytes (%) (Auto) % (1.0-10.0) Eosinophils (%) (Auto) % (0.0-3.0) Basophils (%) (Auto) % (0.0-2.0) Differential Total Cells Counted 100 Neutrophils % (Manual) 88 % (45-75) H Lymphocytes % (Manual) 5 % (20-45) L Monocytes % (Manual) 3 % (1-10) Eosinophils % (Manual) 0 % (0-3) Basophils % (Manual) 0 % (0-2) Band Neutrophils 4 % (0-8) Platelet Estimate Adequate Platelet Morphology Normal Hypochromasia 1+ Anisocytosis 1+ Target Cells 1+ Reticulocyte Count 3.5 % (0.0-2.0) H Prothrombin Time 11.3 SEC (9.30-11.50) Prothrombin Time INR 1.1 (0.9-1.1) PTT 29 SEC (23-33) Urine Color Pale yellow Urine Appearance Clear Urine pH 8 (4.5-8.0) Urine Specific [place] 1.010 (1.005-1.035) Urine Protein Negative (NEGATIVE) Urine Glucose (UA) Negative (NEGATIVE) Urine Ketones Negative (NEGATIVE) Urine Blood Negative (NEGATIVE) Urine Nitrite Negative (NEGATIVE) Urine Bilirubin Negative (NEGATIVE) Urine Urobilinogen Normal MG/DL (0.0-1.0) Urine Leukocyte Esterase 1+ (NEGATIVE) H Urine RBC 0-2 /HPF (0 - 2) Urine WBC 2-4 /HPF (0 - 2) Urine Squamous Epithelial Cells Few /LPF (NONE/OCC) Urine Bacteria Few /HPF (NONE) Urine HCG, Qualitative Negative (NEGATIVE) Sodium Level 141 MMOL/L (136-145) Potassium Level 3.9 MMOL/L (3.5-5.1) Chloride Level 105 MMOL/L (98-107) Carbon Dioxide Level 25 MMOL/L (21-32) Anion Gap 11 mmol/L (5-15) Blood Urea Nitrogen 9 mg/dL (7-18) Creatinine 0.7 MG/DL (0.55-1.30) Estimate Glomerular Filtration Rate > 60 mL/min (>60) Glucose Level 108 MG/DL (74-106) H Calcium Level 9.0 MG/DL (8.5-10.1) Total Bilirubin 1.5 MG/DL (0.2-1.0) H Direct Bilirubin 0.3 MG/DL (0.0-0.3) Aspartate Amino Transferase (AST) 15 U/L (15-37) Alanine Aminotransferase (ALT) 15 U/L (12-78) Alkaline Phosphatase 67 U/L (46-116) Lactate Dehydrogenase 181 U/L (81-234) Total Protein 7.5 G/DL (6.4-8.2) Albumin 4.4 G/DL (3.4-5.0) Globulin 3.1 g/dL Albumin/Globulin Ratio 1.4 (1.0-2.7) Lipase 302 U/L (73-393) Last Vital Signs Date Time Temp Pulse Resp B/P (MAP) Pulse Ox O2 Delivery O2 Flow Rate FiO2 10/31/18 20:17 98.1 75 16 108/79 99 Room Air Status: improved Disposition: HOME, SELF-CARE Condition: Improved Scripts Ondansetron Odt* (ZOFRAN ODT*) 4 Mg Tab.rapdis 4 MG BC EVERY 8 HOURS, #10 TAB 1 Refill Prov: Amdaeo Hagen MD 10/31/18 Ibuprofen* (MOTRIN*) 600 Mg Tablet 600 MG ORAL Q6H PRN for For Pain, #20 TAB Prov: Amadeo Hagen MD 10/31/18 Acetaminophen (Tylenol) 325 Mg Tablet 650 MG ORAL Q6H PRN for Prn Pain/Headache/Temp > 101, #20 TAB 0 Refills Prov: Amadeo Hagen MD 10/31/18 Amadeo Hagen MD Oct 31, 2018 15:31
[2018-10-31 15:55] LABS: HEMATOCRIT 31.2 % (37.0-47.0); HEMOGLOBIN 11.5 G/DL (12.0-16.0); MEAN CORPUSCULAR VOLUME 85 FL (80-99); PLATELET COUNT 347 K/UL (150-450); RED BLOOD COUNT 3.67 M/UL (4.20-5.40); RED CELL DISTRIBUTION WIDTH 13.5 % (11.6-14.8)
[2018-10-31 15:56] LABS: APPEARANCE,URINE CLEAR; BILIRUBIN, URINE NEGATIVE (NEGATIVE); COLOR,URINE PALE YELLOW; GLUCOSE, URINE (UA) NEGATIVE (NEGATIVE); KETONES,URINE NEGATIVE (NEGATIVE); LEUKOCYTE ESTERASE ,URINE 1+ (NEGATIVE); NITRITE,URINE NEGATIVE (NEGATIVE); PH,URINE 8 (4.5-8.0); PROTEIN,URINE NEGATIVE (NEGATIVE); UROBILINOGEN,URINE NORMAL MG/DL (0.0-1.0)
[2018-10-31 15:58] LABS: ANION GAP 11 mmol/L (5-15); BLOOD UREA NITROGEN 9 mg/dL (7-18); CARBON DIOXIDE 25 MMOL/L (21-32); CHLORIDE 105 MMOL/L (98-107); CREATININE 0.7 MG/DL (0.55-1.30); POTASSIUM 3.9 MMOL/L (3.5-5.1); SODIUM 141 MMOL/L (136-145)
--- NOTE | 2018-10-31 16:00 | NUR ---
ED Nurse Note:pt. was BIBA from home with c/o sickle cell pain, blood and urine sent to labs, given IV meds and fluids
[2018-10-31 16:02] LABS: WHITE BLOOD COUNT 27.7 K/UL (4.8-10.8)
[2018-10-31 16:06] LABS: INR 1.1 (0.9-1.1)
[2018-10-31 16:08] LABS: ALANINE AMINOTRANSFERASE 15 U/L (12-78); ALBUMIN 4.4 G/DL (3.4-5.0); ALBUMIN/GLOBULIN RATIO 1.4 (1.0-2.7); ALKALINE PHOSPHATASE 67 U/L (46-116); ASPARTATE AMINO TRANSFERASE 15 U/L (15-37); BILIRUBIN,TOTAL 1.5 MG/DL (0.2-1.0); LACTATE DEHYDROGENASE 181 U/L (81-234)
[2018-10-31 16:09] LABS: BILIRUBIN,DIRECT 0.3 MG/DL (0.0-0.3)
[2018-10-31 16:31] VITALS: BP 109/75
[2018-10-31 18:59] VITALS: BP 108/79
--- NOTE | 2018-10-31 19:01 | NUR ---
ED Nurse Note:pt. was moved to [facility], c/o pain again, notified
[2018-10-31] MEDS ORDERED: oxyCODONE HCL/Acetaminophen 5/325mg ORAL ONE (19:15)
[2018-10-31] MEDS ORDERED: IBUPROFEN600 MG ORAL (19:16)
[2018-10-31] MEDS ORDERED: TYLENOL325 MG ORAL (19:16)
[2018-10-31] MEDS ORDERED: ONDANSETRON ODT4 MG BC (19:23)
--- NOTE | 2018-10-31 19:26 | NUR ---
ED Nurse Note:pt. vomited, aware ,pt. received zofran
--- NOTE | 2018-10-31 19:26 | NUR ---
HAND-OFF: Report given to Majo.
[2018-10-31 20:17] VITALS: BP 108/79
--- NOTE | 2018-10-31 20:17 | NUR ---
ER Nurse Note: Pt seen, treated, medicially cleared for discharge by ERMD. Discharge instructions and prescriptions given with repeat verbalization by pt. Instructed pt follow up with primary care physican within one week. Pt a&ox4, VSS, no signs of distress. Pt was given clothes; left with steady gait, no s/s of pain and nausea after meds. Pt left with own transportation with all belongings.
== END 2018-10-31 20:21 | disposition home or self-care (01) ==
LOC: EDBD 15:14 → EMR 15:47
DX: D57.00 Hb-SS disease with crisis, unspecified (principal); D72.829 Elevated white blood cell count, unspecified; R11.10 Vomiting, unspecified; Z88.0 Allergy status to penicillin; Z88.2 Allergy status to sulfonamides; Z88.5 Allergy status to narcotic agent; J45.909 Unspecified asthma, uncomplicated
CPT/HCPCS: 36415; 80053; 81003; 81025; 82248; 83615; 83690; 85007; 85025; 85044; 85610; 85730; 96361; 96374; 96375; 99284; J1170; J1200; J2765; S0028